=== PATIENT | female | born 1960 | race African-American/Black ===

== ENCOUNTER 2016-02-11 16:05 | Inpatient (IN) | payer OTHER ==
[~2016-02-11] VITALS: Ht 172.7 cm; Wt 95.0 kg
[~2016-02-11 16:05] MED LIST: ACID CONTROL150 MG PO; ALKA-SELTZER H1 EACH PO; AMLODIPINE BESYL5 MG PO; ATARAX,VISTARIL25 MG PO; BENADRYL25 MG PO; CARAFATE1 GM PO; Cleocin PO; DICYCLOMINE HCL20 MG PO; EFFEXOR XR150 MG PO; EFFEXOR XR75 MG PO; ESKALITH300 M1 PO; Effexor XR PO; FENTANYL1 EAC5; FLEXERIL5 MG PO; Flexeril PO; INVanz IV; KENALOG,ARISTOC80 GM TP; LIPITOR20 MG PO; LIPITOR80 MG PO; LITHIUM CARBON150 MG PO; LITHIUM CARBON300 MG PO; NEXIUM40 MG PO; NexIUM PO; Norvasc PO; ONE DAILY MUL400 MCG PO; OXAYDO5 MG PO; PANTOPRAZOLE SO40 MG PO; PEPCID20 MG PO; PERCOCET 5/31 TABLET PO; PREDNISONE10 M1 PO; PREDNISONE20 MG PO; PROTONIX40 MG PO; TRAMADOL HCL50 MG PO; ZANTAC75 M1 PO; ZESTRIL,PRINIVI10 M1 PO; Zantac PO; oxyCODONE PO
[2016-02-11 17:39] LABS: MCH 30.3 PG (29.0-34.0); MCHC 34.7 G/DL (30.0-36.0); MCV 87.4 FL (83-99); MEAN PLAT.VOLUME 10.9 uM^3 (9.5-12.4); PLATELET COUNT 243 K/uL (156-360); RBC DIS.WIDTH-CV 16.4 % (11.8-14.6); RBC DIS.WIDTH-SD 51.4 % (39-53); RED BLOOD COUNT 4.12 M/uL (3.80-5.20); WHITE BLOOD COUNT 6.3 K/uL (4.1-10.2)
[2016-02-11 17:59] LABS: CHLORIDE 109 mEq/L (99-109); POTASSIUM 3.5 mEq/L (3.7-5.4); SODIUM 142 mEq/L (136-147)
[2016-02-11 18:01] LABS: GLUCOSE 74 mg/dL (70-99)
[2016-02-11 18:03] LABS: ANION GAP 15 MEQ/L (2-14); TOTAL BILIRUBIN 0.8 mg/dL (0.0-1.0)
[2016-02-11 18:05] LABS: ALKALINE PHOSPHATASE 168 IU/L (3-129); GFR ESTIMATE (CALCULATED) > 59 mL/min/
[2016-02-11 18:06] LABS: UREA NITROGEN (BUN) 3 mg/dL (9-23)
[2016-02-11 18:08] LABS: LIPASE 53 U/L (1.0-51.0)
[2016-02-11 20:09] LABS: ADD MIUA? YES; BILIRUBIN NEGATIVE; BLOOD NEGATIVE; COLOR YELLOW ((YELLOW)); GLUCOSE (STRIP) NEGATIVE; KETONES NEGATIVE; LEUKOCYTES SMALL; NITRITE NEGATIVE; PH, URINE 6.5 (5-8); PROTEIN (STRIP) NEGATIVE; SPECIFIC GRAVITY 1.036 (1.000-1.030)
[2016-02-11 20:54] LABS: BACTERIA 1+; CASTS PRESENT /LPF; CRYSTALS PRESENT; EPITHELIAL CELLS 2+; MUCUS TRACE; RED BLOOD CELLS RARE /HPF (0-5); UCUL ADDED? NO; WHITE BLOOD CELLS 0-5 /HPF (0-5)
[2016-02-11 20:55] LABS: CALCIUM OXALATE CRYSTALS 1+
[2016-02-12 04:45] VITALS: BP 118/72
[2016-02-12 08:01] VITALS: BP 114/64
[2016-02-12 11:47] LABS: C DIFF TOXIN NEGATIVE (NEGATIVE)
[2016-02-12 11:51] VITALS: BP 99/67
[2016-02-12 12:02] LABS: PROBE CHECK PASS; SPECIMEN PROCESSING CONTROL PASS
[2016-02-12 16:05] VITALS: BP 103/58
[2016-02-12 20:07] VITALS: BP 110/76
[2016-02-13] VITALS (7 sets, daily range): BP systolic 101–123; BP diastolic 57–74
[2016-02-13 06:46] LABS: ANION GAP 6 MEQ/L (2-14); CHLORIDE 113 MEQ/L (99-109); GFR ESTIMATE (CALCULATED) > 59 mL/min/; GLUCOSE 64 mg/dL (70-99); POTASSIUM 3.3 MEQ/L (3.7-5.4); SAMPLE HEMOLYSIS CHECK 0; SAMPLE ICTERIC CHECK 0; SAMPLE LIPEMIA CHECK 0; SODIUM 143 MEQ/L (136-147); UREA NITROGEN (BUN) 2 mg/dL (9-23)
[2016-02-13 08:47] LABS: MAGNESIUM 1.5 mg/dl (1.3-2.7)
[2016-02-14 03:44] VITALS: BP 114/64
[2016-02-14 07:23] LABS: ANION GAP 7 MEQ/L (2-14); CHLORIDE 113 MEQ/L (99-109); GFR ESTIMATE (CALCULATED) > 59 mL/min/; GLUCOSE 72 mg/dL (70-99); POTASSIUM 3.4 MEQ/L (3.7-5.4); SAMPLE HEMOLYSIS CHECK 0; SAMPLE ICTERIC CHECK 0; SAMPLE LIPEMIA CHECK 0; SODIUM 143 MEQ/L (136-147); UREA NITROGEN (BUN) 2 mg/dL (9-23)
[2016-02-14 07:31] LABS: ALKALINE PHOSPHATASE 131 IU/L (3-129); DIRECT BILIRUBIN 0.2 mg/dL (0.0-0.3); TOTAL BILIRUBIN 0.7 MG/DL (0.0-1.0)
[2016-02-14 07:39] VITALS: BP 124/62
[2016-02-14 11:29] VITALS: BP 106/67
[2016-02-14 15:50] VITALS: BP 108/73
[2016-02-15 00:20] VITALS: BP 122/76
[2016-02-15 08:00] LABS: EOSINOPHIL (%) 1.6 % (0-5); EOSINOPHIL COUNT 0.1 K/uL (0-0.3); HEMATOCRIT 27.2 % (36.0-46.0); IMMATURE GRANULOCYTE (%) 0.2 % (0.0-0.7); LYMPHOCYTE COUNT 2.1 K/uL (1.0-2.8); MCH 29.8 PG (29.0-34.0); MCHC 34.6 G/DL (30.0-36.0); MCV 86.3 FL (83-99); MONOCYTE (%) 6.3 % (3-12); MONOCYTE COUNT 0.4 K/uL (0-0.8); NEUTROPHIL (%) 54.8 % (45-76); NEUTROPHIL COUNT 3.1 K/uL (1.8-6.4); RBC DIS.WIDTH-CV 16.4 % (11.8-14.6); RBC DIS.WIDTH-SD 51.6 % (39-53); WHITE BLOOD COUNT 5.7 K/uL (4.1-10.2)
[2016-02-15 08:01] LABS: RED BLOOD COUNT 3.15 M/uL (3.80-5.20)
[2016-02-15 08:03] VITALS: BP 112/64
[2016-02-15 08:07] LABS: ALKALINE PHOSPHATASE 114 IU/L (3-129); ANION GAP 6 MEQ/L (2-14); CHLORIDE 113 MEQ/L (99-109); GFR ESTIMATE (CALCULATED) > 59 mL/min/; GLUCOSE 84 mg/dL (70-99); POTASSIUM 3.4 MEQ/L (3.7-5.4); SAMPLE HEMOLYSIS CHECK 0; SAMPLE ICTERIC CHECK 0; SAMPLE LIPEMIA CHECK 0; SODIUM 144 MEQ/L (136-147); TOTAL BILIRUBIN 0.7 MG/DL (0.0-1.0); UREA NITROGEN (BUN) 2 mg/dL (9-23)
[2016-02-15 08:08] LABS: MAGNESIUM 1.8 mg/dl (1.3-2.7)
[2016-02-15 08:30] LABS: HEMATOLOGY COMMENT 1 REV; USER ID NJR
[2016-02-15 08:33] LABS: MEAN PLAT.VOLUME 10.7 uM^3 (9.5-12.4); PLATELET COUNT 147 K/uL (156-360)
[2016-02-15 10:08] LABS: HBSG INDEX 0.17
[2016-02-15 10:14] LABS: ANTI-HEPATITIS A VIRUS (IGM) Nonreactive; HAV INDEX 0.14
[2016-02-15 10:15] LABS: ANTI-HEPATITIS B CORE (IGM) Nonreactive; HBC IgM INDEX 0.06
[2016-02-15 11:25] LABS: HPCA INDEX 3.32
[2016-02-15 16:19] VITALS: BP 116/81
[2016-02-15 23:28] VITALS: BP 115/70
[2016-02-16 07:24] LABS: HEMATOCRIT 29.8 % (36.0-46.0); MCH 30.1 PG (29.0-34.0); MCHC 34.6 G/DL (30.0-36.0); MCV 87.1 FL (83-99); MEAN PLAT.VOLUME 11.1 uM^3 (9.5-12.4); PLATELET COUNT 146 K/uL (156-360); RBC DIS.WIDTH-CV 16.3 % (11.8-14.6); RBC DIS.WIDTH-SD 52.2 % (39-53); RED BLOOD COUNT 3.42 M/uL (3.80-5.20); WHITE BLOOD COUNT 6.4 K/uL (4.1-10.2)
[2016-02-16 07:49] LABS: EOSINOPHIL (%) 0.8 % (0-5); EOSINOPHIL COUNT 0.1 K/uL (0-0.3); IMMATURE GRANULOCYTE (%) 0.2 % (0.0-0.7); LYMPHOCYTE COUNT 2.3 K/uL (1.0-2.8); MONOCYTE (%) 3.9 % (3-12); MONOCYTE COUNT 0.3 K/uL (0-0.8); NEUTROPHIL (%) 58.2 % (45-76); NEUTROPHIL COUNT 3.7 K/uL (1.8-6.4)
[2016-02-16 07:50] LABS: ALKALINE PHOSPHATASE 117 IU/L (3-129); ANION GAP 8 MEQ/L (2-14); CHLORIDE 113 MEQ/L (99-109); GFR ESTIMATE (CALCULATED) > 59 mL/min/; GLUCOSE 88 mg/dL (70-99); POTASSIUM 3.7 MEQ/L (3.7-5.4); SAMPLE HEMOLYSIS CHECK 0; SAMPLE ICTERIC CHECK 0; SAMPLE LIPEMIA CHECK 0; SODIUM 145 MEQ/L (136-147); UREA NITROGEN (BUN) 2 mg/dL (9-23)
[2016-02-16 08:12] VITALS: BP 118/81
[2016-02-16 08:53] LABS: HEMATOLOGY COMMENT 1 SMEAR COMPATIBLE; PLAT.SUFFICIENCY DECREASED; USER ID TLW
[2016-02-16 16:33] VITALS: BP 113/81
[2016-02-16 17:24] LABS: BASE EXCESS -1.6 mEq/L (-3 to +3); BICARBONATE 22.9 mEq/L (22-26); CARBOXY HGB 1.9 % (0-5); METHEMOGLOBIN 1.5 % (0-1.5); PCO2 37 mm Hg (35-45); PO2 64 mm Hg (80-100); SITE RR
[2016-02-16 17:25] LABS: COMMENTS - BLOOD GASES A+C+; FI02 50 %; O2 FLOW 12 L/MIN
[2016-02-16 19:23] VITALS: BP 120/79
[2016-02-16 23:14] VITALS: BP 126/72
[2016-02-17 03:32] VITALS: BP 129/70
[2016-02-17 06:25] LABS: HEMATOCRIT 27.4 % (36.0-46.0); MCH 30.4 PG (29.0-34.0); MCHC 34.7 G/DL (30.0-36.0); MCV 87.5 FL (83-99); MEAN PLAT.VOLUME 11.4 uM^3 (9.5-12.4); PLATELET COUNT 144 K/uL (156-360); RBC DIS.WIDTH-CV 16.6 % (11.8-14.6); RBC DIS.WIDTH-SD 53.1 % (39-53); RED BLOOD COUNT 3.13 M/uL (3.80-5.20); WHITE BLOOD COUNT 6.9 K/uL (4.1-10.2)
[2016-02-17 06:51] LABS: ANION GAP 10 MEQ/L (2-14); CHLORIDE 114 MEQ/L (99-109); GFR ESTIMATE (CALCULATED) > 59 mL/min/; POTASSIUM 3.7 MEQ/L (3.7-5.4); SAMPLE HEMOLYSIS CHECK 0; SAMPLE ICTERIC CHECK 0; SAMPLE LIPEMIA CHECK 0; SODIUM 146 MEQ/L (136-147); UREA NITROGEN (BUN) 4 mg/dL (9-23)
[2016-02-17 06:55] LABS: GLUCOSE 177 mg/dL (70-99)
[2016-02-17 07:49] VITALS: BP 120/85
[2016-02-17 16:13] VITALS: BP 100/52
[2016-02-17 19:13] VITALS: BP 103/68
[2016-02-17 23:37] VITALS: BP 111/63
[2016-02-18 03:34] VITALS: BP 115/68
[2016-02-18 07:21] LABS: INTERNAL CONTROL VALID? YES
[2016-02-18 07:58] VITALS: BP 123/86
[2016-02-18 10:03] LABS: ANION GAP 17 MEQ/L (2-14); CHLORIDE 111 MEQ/L (99-109); POTASSIUM 4.4 MEQ/L (3.7-5.4); SAMPLE HEMOLYSIS CHECK 1; SAMPLE ICTERIC CHECK 0; SAMPLE LIPEMIA CHECK 0; SODIUM 148 MEQ/L (136-147)
[2016-02-18 10:10] LABS: GFR ESTIMATE (CALCULATED) > 59 mL/min/; UREA NITROGEN (BUN) 8 mg/dL (9-23)
[2016-02-18 10:18] LABS: GLUCOSE 114 mg/dL (70-99)
[2016-02-18 14:31] LABS: HEMATOCRIT 30.6 % (36.0-46.0); MCH 30.4 PG (29.0-34.0); MCHC 33.3 G/DL (30.0-36.0); MCV 91.1 FL (83-99); MEAN PLAT.VOLUME 12.2 uM^3 (9.5-12.4); PLATELET COUNT 182 K/uL (156-360); RBC DIS.WIDTH-CV 16.9 % (11.8-14.6); RBC DIS.WIDTH-SD 55.7 % (39-53); RED BLOOD COUNT 3.36 M/uL (3.80-5.20); WHITE BLOOD COUNT 12.1 K/uL (4.1-10.2)
[2016-02-18 15:32] VITALS: BP 95/63
[2016-02-18 23:34] VITALS: BP 113/79
[2016-02-19 07:37] VITALS: BP 104/67
[2016-02-19 07:43] LABS: HEMATOCRIT 27.6 % (36.0-46.0); MCH 30.2 PG (29.0-34.0); MCHC 34.1 G/DL (30.0-36.0); MCV 88.7 FL (83-99); MEAN PLAT.VOLUME 12.3 uM^3 (9.5-12.4); PLATELET COUNT 152 K/uL (156-360); RBC DIS.WIDTH-CV 16.7 % (11.8-14.6); RED BLOOD COUNT 3.11 M/uL (3.80-5.20); WHITE BLOOD COUNT 10.2 K/uL (4.1-10.2)
[2016-02-19 08:09] LABS: ANION GAP 10 MEQ/L (2-14); CHLORIDE 113 MEQ/L (99-109); GFR ESTIMATE (CALCULATED) > 59 mL/min/; GLUCOSE 87 mg/dL (70-99); POTASSIUM 3.6 MEQ/L (3.7-5.4); SAMPLE HEMOLYSIS CHECK 0; SAMPLE ICTERIC CHECK 0; SAMPLE LIPEMIA CHECK 0; SODIUM 146 MEQ/L (136-147); UREA NITROGEN (BUN) 9 mg/dL (9-23)
[2016-02-19 11:47] VITALS: BP 118/83
[2016-02-19 16:07] VITALS: BP 118/77
[2016-02-20] VITALS: BP 118/84
[2016-02-20 08:15] VITALS: BP 114/80
[2016-02-20 15:58] VITALS: BP 105/70
[2016-02-20 23:42] VITALS: BP 110/76
[2016-02-21 07:15] LABS: ANION GAP 7 MEQ/L (2-14); CHLORIDE 110 MEQ/L (99-109); GFR ESTIMATE (CALCULATED) > 59 mL/min/; GLUCOSE 82 mg/dL (70-99); POTASSIUM 3.4 MEQ/L (3.7-5.4); SAMPLE HEMOLYSIS CHECK 0; SAMPLE ICTERIC CHECK 0; SAMPLE LIPEMIA CHECK 0; SODIUM 143 MEQ/L (136-147); UREA NITROGEN (BUN) 7 mg/dL (9-23)
[2016-02-21 07:59] VITALS: BP 118/81
[2016-02-21] MEDS ORDERED: SPIRIVA RESPIMAT4 GM IH (10:20)
[2016-02-21] MEDS ORDERED: PREDNISONE10 MG PO (10:20)
[2016-02-21] MEDS ORDERED: ADVAIR HFA120 INHALA IH (10:20)
[2016-02-21] MEDS ORDERED: LEVAQUIN500 MG PO (10:20)
[2016-02-21] MEDS ORDERED: K-DUR20 MEQ PO (10:20)
== END 2016-02-21 13:33 | disposition home or self-care (01) | DRG 640 ==
LOC: EME 16:05 → EDOF 02-12 03:09 → 5WEST 02-12 04:29 → 2EAST 02-13 10:14 → 5WEST 02-13 10:14 → 2EAST 02-13 22:05
PROVIDERS: Hospitalist; Nurse Practitioner Adult Health; Physician Assistant Medical
DX: E86.0 Dehydration (principal); J69.0 Pneumonitis due to inhalation of food and vomit; N20.0 Calculus of kidney; K57.30 Diverticulosis of large intestine without perforation or abscess without bleeding; J96.01 Acute respiratory failure with hypoxia; R19.7 Diarrhea, unspecified; R11.2 Nausea with vomiting, unspecified; E87.6 Hypokalemia; E88.09 Other disorders of plasma-protein metabolism, not elsewhere classified; I10 Essential (primary) hypertension; L43.9 Lichen planus, unspecified; K21.9 Gastro-esophageal reflux disease without esophagitis; E78.5 Hyperlipidemia, unspecified; F31.9 Bipolar disorder, unspecified; B19.20 Unspecified viral hepatitis C without hepatic coma; D52.0 Dietary folate deficiency anemia; E83.51 Hypocalcemia
CPT/HCPCS: 36600; 70486; 71010; 71020; 71250; 74177; 80048; 80053; 80074; 80076; 80178; 81003; 82607; 82746; 82803; 83690; 83735; 84100; 84702; 85025; 85027; 86256 90; 86609 90; 87040; 87070; 87177; 87205; 87329; 87449; 87493; 87506; 87522 90; 93970; 94640; 94640 76; 94799; 99202; 99281; 99285; G0378; J0456; J0696; J1650; J1940; J2405; J2543; J2920; J2930; J3475; J3480; J7030; J7050; J7070; J7512; P9047; Q0177; S0028

== ENCOUNTER 2016-02-23 02:50 | Inpatient (IN) | payer OTHER ==
[~2016-02-23] VITALS: Ht 172.7 cm; Wt 95.0 kg
[~2016-02-23 02:50] MED LIST changes: +ADVAIR HFA120 INHALA IH; +K-DUR20 MEQ PO; +LEVAQUIN500 MG PO; +PREDNISONE10 MG PO; +SPIRIVA RESPIMAT4 GM IH
[2016-02-23 03:22] LABS: HEMATOCRIT 32.5 % (36.0-46.0); MCH 30.6 PG (29.0-34.0); MCHC 34.2 G/DL (30.0-36.0); MCV 89.5 FL (83-99); MEAN PLAT.VOLUME 11.7 uM^3 (9.5-12.4); PLATELET COUNT 126 K/uL (156-360); RBC DIS.WIDTH-CV 16.1 % (11.8-14.6); RBC DIS.WIDTH-SD 49.8 % (39-53); RED BLOOD COUNT 3.63 M/uL (3.80-5.20)
[2016-02-23 03:33] LABS: CHLORIDE 113 mEq/L (99-109); POTASSIUM 3.1 mEq/L (3.7-5.4); SODIUM 149 mEq/L (136-147)
[2016-02-23 03:36] LABS: ANION GAP 12 MEQ/L (2-14)
[2016-02-23 03:37] LABS: TOTAL BILIRUBIN 0.8 mg/dL (0.0-1.0)
[2016-02-23 03:38] LABS: ALKALINE PHOSPHATASE 135 IU/L (3-129); GLUCOSE 103 mg/dL (70-99)
[2016-02-23 03:39] LABS: GFR ESTIMATE (CALCULATED) > 59 mL/min/
[2016-02-23 03:40] LABS: UREA NITROGEN (BUN) 4 mg/dL (9-23)
[2016-02-23 03:42] LABS: LIPASE 16 U/L (1.0-51.0)
[2016-02-23 06:56] LABS: INTERNAL CONTROL VALID? YES
[2016-02-23] MEDS ORDERED: KLOR-CON20 MEQ PO (07:54)
[2016-02-23] MEDS ORDERED: KLOR-CON M2020 MEQ PO (07:55)
[2016-02-23] MEDS ORDERED: LEVAQUIN500 MG PO (07:56)
[2016-02-23] MEDS ORDERED: IMODIUM A-D2 M2 PO (07:57)
[2016-02-23 08:08] LABS: MAGNESIUM 1.8 mg/dL (1.3-2.7)
[2016-02-23 10:14] LABS: EOSINOPHIL (%) 1.5 % (0-5); EOSINOPHIL COUNT 0.1 K/uL (0-0.3); HEMATOCRIT 27.2 % (36.0-46.0); IMMATURE GRANULOCYTE (%) 0.2 % (0.0-0.7); IMMATURE GRANULOCYTE COUNT 0.2 K/uL; LYMPHOCYTE COUNT 3.4 K/uL (1.0-2.8); MCH 29.8 PG (29.0-34.0); MCHC 33.8 G/DL (30.0-36.0); MONOCYTE (%) 5.7 % (3-12); MONOCYTE COUNT 0.5 K/uL (0-0.8); NEUTROPHIL (%) 57.1 % (45-76); NEUTROPHIL COUNT 5.5 K/uL (1.8-6.4); RBC DIS.WIDTH-CV 15.4 % (11.8-14.6); RBC DIS.WIDTH-SD 46.1 % (39-53); RED BLOOD COUNT 3.09 M/uL (3.80-5.20); WHITE BLOOD COUNT 9.5 K/uL (4.1-10.2)
[2016-02-23 10:16] LABS: MEAN PLAT.VOLUME 10.7 uM^3 (9.5-12.4)
[2016-02-23 10:17] LABS: PLATELET COUNT 214 K/uL (156-360)
[2016-02-23 10:33] LABS: CHLORIDE 116 mEq/L (99-109); POTASSIUM 2.5 mEq/L (3.7-5.4); SODIUM 150 mEq/L (136-147)
[2016-02-23 10:36] LABS: GLUCOSE 68 mg/dL (70-99)
[2016-02-23 10:37] LABS: ANION GAP 9 MEQ/L (2-14); TOTAL BILIRUBIN 0.9 mg/dL (0.0-1.0)
[2016-02-23 10:39] LABS: ALKALINE PHOSPHATASE 115 IU/L (3-129); GFR ESTIMATE (CALCULATED) > 59 mL/min/
[2016-02-23 10:40] LABS: UREA NITROGEN (BUN) 3 mg/dL (9-23)
[2016-02-23 15:39] VITALS: BP 123/68
[2016-02-23 15:46] VITALS: BP 123/68
[2016-02-23 18:17] LABS: ANION GAP 12 MEQ/L (2-14); CHLORIDE 111 MEQ/L (99-109); GFR ESTIMATE (CALCULATED) > 59 mL/min/; SAMPLE HEMOLYSIS CHECK 0; SAMPLE ICTERIC CHECK 0; SAMPLE LIPEMIA CHECK 0; SODIUM 148 MEQ/L (136-147); UREA NITROGEN (BUN) 3 mg/dL (9-23)
[2016-02-23 18:20] LABS: GLUCOSE 93 mg/dL (70-99)
[2016-02-24 00:36] VITALS: BP 125/68
[2016-02-24 00:56] LABS: CHLORIDE 113 mEq/L (99-109); POTASSIUM 2.7 mEq/L (3.7-5.4); SODIUM 146 mEq/L (136-147)
[2016-02-24 00:57] LABS: GLUCOSE 84 mg/dL (70-99)
[2016-02-24 00:59] LABS: ANION GAP 10 MEQ/L (2-14)
[2016-02-24 01:01] LABS: GFR ESTIMATE (CALCULATED) > 59 mL/min/
[2016-02-24 01:02] LABS: UREA NITROGEN (BUN) 3 mg/dL (9-23)
[2016-02-24 01:33] LABS: MAGNESIUM 1.3 mg/dL (1.3-2.7)
[2016-02-24 04:15] VITALS: BP 120/72
[2016-02-24 07:30] VITALS: BP 118/78
[2016-02-24 07:50] LABS: ANION GAP 9 MEQ/L (2-14); CHLORIDE 109 MEQ/L (99-109); GFR ESTIMATE (CALCULATED) > 59 mL/min/; GLUCOSE 84 mg/dL (70-99); POTASSIUM 3.4 MEQ/L (3.7-5.4); SAMPLE HEMOLYSIS CHECK 0; SAMPLE ICTERIC CHECK 0; SAMPLE LIPEMIA CHECK 0; SODIUM 143 MEQ/L (136-147); UREA NITROGEN (BUN) 2 mg/dL (9-23)
[2016-02-24 11:41] VITALS: BP 90/56
[2016-02-24 13:30] LABS: C DIFF TOXIN ND (NEGATIVE)
[2016-02-24 15:43] VITALS: BP 107/65
[2016-02-24 19:58] VITALS: BP 103/59
[2016-02-25] VITALS: BP 110/63
[2016-02-25 05:11] VITALS: BP 117/65
[2016-02-25 06:23] LABS: EOSINOPHIL (%) 2.7 % (0-5); EOSINOPHIL COUNT 0.3 K/uL (0-0.3); HEMATOCRIT 26.5 % (36.0-46.0); IMMATURE GRANULOCYTE (%) 0.1 % (0.0-0.7); LYMPHOCYTE COUNT 3.3 K/uL (1.0-2.8); MCH 30.5 PG (29.0-34.0); MCHC 33.6 G/DL (30.0-36.0); MCV 90.8 FL (83-99); MONOCYTE COUNT 0.5 K/uL (0-0.8); NEUTROPHIL (%) 58.9 % (45-76); NEUTROPHIL COUNT 5.9 K/uL (1.8-6.4); PLATELET COUNT 217 K/uL (156-360); RBC DIS.WIDTH-CV 15.8 % (11.8-14.6); RBC DIS.WIDTH-SD 50.9 % (39-53); RED BLOOD COUNT 2.92 M/uL (3.80-5.20)
[2016-02-25 06:53] LABS: IMMUNOGLOBULIN A 602 MG/DL (40-350); IMMUNOGLOBULIN G 1192 MG/DL (650-1600); IMMUNOGLOBULIN M 34 MG/DL (50-300)
[2016-02-25 07:09] LABS: ALKALINE PHOSPHATASE 92 IU/L (3-129); ANION GAP 9 MEQ/L (2-14); CHLORIDE 110 MEQ/L (99-109); GFR ESTIMATE (CALCULATED) > 59 mL/min/; GLUCOSE 80 mg/dL (70-99); MAGNESIUM 1.4 mg/dl (1.3-2.7); POTASSIUM 3.3 MEQ/L (3.7-5.4); SAMPLE HEMOLYSIS CHECK 0; SAMPLE ICTERIC CHECK 0; SAMPLE LIPEMIA CHECK 0; SODIUM 144 MEQ/L (136-147); TOTAL BILIRUBIN 0.9 MG/DL (0.0-1.0); UREA NITROGEN (BUN) 2 mg/dL (9-23)
[2016-02-25 08:19] VITALS: BP 112/78
[2016-02-25 11:30] VITALS: BP 102/52
[2016-02-25 15:22] VITALS: BP 118/74
[2016-02-25 20:16] VITALS: BP 106/66
[2016-02-26 00:23] VITALS: BP 110/62
[2016-02-26 07:49] VITALS: BP 96/66
[2016-02-26 09:40] LABS: EOSINOPHIL (%) 1.6 % (0-5); EOSINOPHIL COUNT 0.2 K/uL (0-0.3); HEMATOCRIT 29.2 % (36.0-46.0); IMMATURE GRANULOCYTE (%) 0.3 % (0.0-0.7); LYMPHOCYTE COUNT 3.6 K/uL (1.0-2.8); MCH 30.7 PG (29.0-34.0); MCHC 33.9 G/DL (30.0-36.0); MCV 90.7 FL (83-99); MEAN PLAT.VOLUME 11.4 uM^3 (9.5-12.4); MONOCYTE (%) 4.5 % (3-12); MONOCYTE COUNT 0.5 K/uL (0-0.8); NEUTROPHIL (%) 61.8 % (45-76); NEUTROPHIL COUNT 7.1 K/uL (1.8-6.4); PLATELET COUNT 232 K/uL (156-360); RBC DIS.WIDTH-CV 15.8 % (11.8-14.6); RBC DIS.WIDTH-SD 50.4 % (39-53); RED BLOOD COUNT 3.22 M/uL (3.80-5.20); WHITE BLOOD COUNT 11.5 K/uL (4.1-10.2)
[2016-02-26 10:55] LABS: ALKALINE PHOSPHATASE 105 IU/L (3-129); ANION GAP 11 MEQ/L (2-14); CHLORIDE 109 MEQ/L (99-109); GFR ESTIMATE (CALCULATED) > 59 mL/min/; GLUCOSE 71 mg/dL (70-99); POTASSIUM 3.6 MEQ/L (3.7-5.4); SAMPLE HEMOLYSIS CHECK 0; SAMPLE ICTERIC CHECK 0; SAMPLE LIPEMIA CHECK 0; SODIUM 147 MEQ/L (136-147)
[2016-02-26 10:57] LABS: TOTAL BILIRUBIN 1.3 MG/DL (0.0-1.0); UREA NITROGEN (BUN) < 2 mg/dL (9-23)
[2016-02-26 15:32] VITALS: BP 97/58
[2016-02-27 00:29] VITALS: BP 108/56
[2016-02-27 07:04] LABS: EOSINOPHIL (%) 1.1 % (0-5); EOSINOPHIL COUNT 0.1 K/uL (0-0.3); HEMATOCRIT 26.9 % (36.0-46.0); IMMATURE GRANULOCYTE (%) 0.2 % (0.0-0.7); LYMPHOCYTE COUNT 3.3 K/uL (1.0-2.8); MCH 30.6 PG (29.0-34.0); MCHC 33.8 G/DL (30.0-36.0); MCV 90.6 FL (83-99); MEAN PLAT.VOLUME 10.9 uM^3 (9.5-12.4); MONOCYTE (%) 5.1 % (3-12); MONOCYTE COUNT 0.6 K/uL (0-0.8); NEUTROPHIL (%) 66.3 % (45-76); NEUTROPHIL COUNT 8.2 K/uL (1.8-6.4); PLATELET COUNT 227 K/uL (156-360); RBC DIS.WIDTH-CV 15.8 % (11.8-14.6); RED BLOOD COUNT 2.97 M/uL (3.80-5.20); WHITE BLOOD COUNT 12.3 K/uL (4.1-10.2)
[2016-02-27 07:39] LABS: ALKALINE PHOSPHATASE 106 IU/L (3-129); ANION GAP 9 MEQ/L (2-14); CHLORIDE 112 MEQ/L (99-109); GFR ESTIMATE (CALCULATED) > 59 mL/min/; GLUCOSE 82 mg/dL (70-99); MAGNESIUM 1.4 mg/dl (1.3-2.7); POTASSIUM 3.1 MEQ/L (3.7-5.4); SAMPLE HEMOLYSIS CHECK 0; SAMPLE ICTERIC CHECK 0; SAMPLE LIPEMIA CHECK 0; SODIUM 148 MEQ/L (136-147); TOTAL BILIRUBIN 1.2 MG/DL (0.0-1.0); UREA NITROGEN (BUN) 2 mg/dL (9-23)
[2016-02-27 08:47] VITALS: BP 107/68
[2016-02-27 16:56] VITALS: BP 100/66
[2016-02-28 00:38] VITALS: BP 97/60
[2016-02-28 07:01] LABS: EOSINOPHIL (%) 1.3 % (0-5); EOSINOPHIL COUNT 0.1 K/uL (0-0.3); IMMATURE GRANULOCYTE (%) 0.2 % (0.0-0.7); LYMPHOCYTE COUNT 2.4 K/uL (1.0-2.8); MCH 31.1 PG (29.0-34.0); MCV 88.7 FL (83-99); MEAN PLAT.VOLUME 11.4 uM^3 (9.5-12.4); MONOCYTE (%) 6.5 % (3-12); MONOCYTE COUNT 0.6 K/uL (0-0.8); NEUTROPHIL (%) 66.4 % (45-76); NEUTROPHIL COUNT 6.3 K/uL (1.8-6.4); PLATELET COUNT 212 K/uL (156-360); RBC DIS.WIDTH-SD 49.3 % (39-53); RED BLOOD COUNT 2.93 M/uL (3.80-5.20); WHITE BLOOD COUNT 9.5 K/uL (4.1-10.2)
[2016-02-28 07:31] LABS: ANION GAP 11 MEQ/L (2-14); CHLORIDE 112 MEQ/L (99-109); GFR ESTIMATE (CALCULATED) > 59 mL/min/; GLUCOSE 67 mg/dL (70-99); MAGNESIUM 1.6 mg/dl (1.3-2.7); POTASSIUM 3.2 MEQ/L (3.7-5.4); SAMPLE HEMOLYSIS CHECK 0; SAMPLE ICTERIC CHECK 0; SAMPLE LIPEMIA CHECK 0; SODIUM 148 MEQ/L (136-147); TOTAL BILIRUBIN 1.3 MG/DL (0.0-1.0); UREA NITROGEN (BUN) 2 mg/dL (9-23)
[2016-02-28 07:33] LABS: ALKALINE PHOSPHATASE 138 IU/L (3-129)
[2016-02-28 07:41] VITALS: BP 114/64
[2016-02-29 00:17] VITALS: BP 120/65
[2016-02-29 06:59] LABS: EOSINOPHIL (%) 1.6 % (0-5); EOSINOPHIL COUNT 0.2 K/uL (0-0.3); IMMATURE GRANULOCYTE (%) 0.3 % (0.0-0.7); LYMPHOCYTE COUNT 2.8 K/uL (1.0-2.8); MCH 31.2 PG (29.0-34.0); MCV 89.1 FL (83-99); MEAN PLAT.VOLUME 11.3 uM^3 (9.5-12.4); MONOCYTE (%) 6.7 % (3-12); MONOCYTE COUNT 0.7 K/uL (0-0.8); NEUTROPHIL (%) 63.5 % (45-76); NEUTROPHIL COUNT 6.4 K/uL (1.8-6.4); PLATELET COUNT 189 K/uL (156-360); RBC DIS.WIDTH-CV 15.9 % (11.8-14.6); RBC DIS.WIDTH-SD 49.3 % (39-53); RED BLOOD COUNT 2.47 M/uL (3.80-5.20)
[2016-02-29 07:36] LABS: ANION GAP 9 MEQ/L (2-14); CHLORIDE 111 MEQ/L (99-109); GFR ESTIMATE (CALCULATED) > 59 mL/min/; GLUCOSE 68 mg/dL (70-99); SAMPLE HEMOLYSIS CHECK 1; SAMPLE ICTERIC CHECK 0; SAMPLE LIPEMIA CHECK 0; SODIUM 144 MEQ/L (136-147); UREA NITROGEN (BUN) 2 mg/dL (9-23)
[2016-02-29 07:43] LABS: POTASSIUM 3.4 MEQ/L (3.7-5.4)
[2016-02-29 08:03] VITALS: BP 97/53
[2016-02-29 09:51] LABS: POTASSIUM 3.1 MEQ/L (3.7-5.4)
[2016-02-29 15:09] VITALS: BP 103/59
[2016-02-29 20:18] LABS: BASOPHIL COUNT 0.1 K/uL (0-0.1); EOSINOPHIL (%) 1.1 % (0-5); EOSINOPHIL COUNT 0.1 K/uL (0-0.3); HEMATOCRIT 24.4 % (36.0-46.0); IMMATURE GRANULOCYTE (%) 0.3 % (0.0-0.7); LYMPHOCYTE COUNT 2.8 K/uL (1.0-2.8); MCH 30.9 PG (29.0-34.0); MCHC 34.4 G/DL (30.0-36.0); MCV 89.7 FL (83-99); MEAN PLAT.VOLUME 11.2 uM^3 (9.5-12.4); MONOCYTE (%) 5.9 % (3-12); MONOCYTE COUNT 0.6 K/uL (0-0.8); NEUTROPHIL (%) 63.2 % (45-76); NEUTROPHIL COUNT 6.1 K/uL (1.8-6.4); PLATELET COUNT 193 K/uL (156-360); RBC DIS.WIDTH-CV 15.7 % (11.8-14.6); RBC DIS.WIDTH-SD 49.5 % (39-53); RED BLOOD COUNT 2.72 M/uL (3.80-5.20); WHITE BLOOD COUNT 9.7 K/uL (4.1-10.2)
[2016-03-01] VITALS: BP 92/58
[2016-03-01 04:00] VITALS: BP 138/73
[2016-03-01 07:23] VITALS: BP 104/63
[2016-03-01 08:49] LABS: MCH 30.7 PG (29.0-34.0); MCV 87.8 FL (83-99); MEAN PLAT.VOLUME 11.5 uM^3 (9.5-12.4); PLATELET COUNT 185 K/uL (156-360); RBC DIS.WIDTH-CV 16.1 % (11.8-14.6); RBC DIS.WIDTH-SD 48.4 % (39-53); RED BLOOD COUNT 2.96 M/uL (3.80-5.20); WHITE BLOOD COUNT 11.4 K/uL (4.1-10.2)
[2016-03-01 08:55] LABS: BASOPHIL COUNT 0.1 K/uL (0-0.1); EOSINOPHIL (%) 1.6 % (0-5); EOSINOPHIL COUNT 0.2 K/uL (0-0.3); IMMATURE GRANULOCYTE (%) 0.2 % (0.0-0.7); LYMPHOCYTE COUNT 3.3 K/uL (1.0-2.8); MONOCYTE COUNT 0.7 K/uL (0-0.8); NEUTROPHIL (%) 62.5 % (45-76); NEUTROPHIL COUNT 7.1 K/uL (1.8-6.4)
[2016-03-01 10:08] LABS: ANION GAP 10 MEQ/L (2-14); CHLORIDE 110 MEQ/L (99-109); POTASSIUM 3.3 MEQ/L (3.7-5.4); SAMPLE HEMOLYSIS CHECK 0; SAMPLE ICTERIC CHECK 0; SAMPLE LIPEMIA CHECK 0; SODIUM 144 MEQ/L (136-147)
[2016-03-01 10:13] LABS: GFR ESTIMATE (CALCULATED) > 59 mL/min/; GLUCOSE 68 mg/dL (70-99); UREA NITROGEN (BUN) 2 mg/dL (9-23)
[2016-03-01 15:00] VITALS: BP 108/66
[2016-03-01 23:13] VITALS: BP 108/69
[2016-03-02 07:03] LABS: MCH 31.1 PG (29.0-34.0); MCHC 35.2 G/DL (30.0-36.0); MCV 88.3 FL (83-99); MEAN PLAT.VOLUME 11.8 uM^3 (9.5-12.4); PLATELET COUNT 186 K/uL (156-360); RBC DIS.WIDTH-CV 15.6 % (11.8-14.6); RBC DIS.WIDTH-SD 48.5 % (39-53); RED BLOOD COUNT 2.83 M/uL (3.80-5.20); WHITE BLOOD COUNT 10.4 K/uL (4.1-10.2)
[2016-03-02 07:37] LABS: ANION GAP 10 MEQ/L (2-14); CHLORIDE 109 MEQ/L (99-109); GFR ESTIMATE (CALCULATED) > 59 mL/min/; GLUCOSE 76 mg/dL (70-99); POTASSIUM 3.4 MEQ/L (3.7-5.4); SAMPLE HEMOLYSIS CHECK 0; SAMPLE ICTERIC CHECK 0; SAMPLE LIPEMIA CHECK 0; SODIUM 144 MEQ/L (136-147); UREA NITROGEN (BUN) 2 mg/dL (9-23)
[2016-03-02 08:09] VITALS: BP 121/75
[2016-03-02 23:33] VITALS: BP 105/72
[2016-03-03 07:15] LABS: HEMATOCRIT 22.6 % (36.0-46.0); MCH 30.7 PG (29.0-34.0); MCHC 34.5 G/DL (30.0-36.0); MEAN PLAT.VOLUME 11.2 uM^3 (9.5-12.4); PLATELET COUNT 174 K/uL (156-360); RBC DIS.WIDTH-CV 15.4 % (11.8-14.6); RBC DIS.WIDTH-SD 48.1 % (39-53); RED BLOOD COUNT 2.54 M/uL (3.80-5.20); WHITE BLOOD COUNT 9.3 K/uL (4.1-10.2)
[2016-03-03 07:54] LABS: ANION GAP 9 MEQ/L (2-14); CHLORIDE 110 MEQ/L (99-109); POTASSIUM 3.5 MEQ/L (3.7-5.4); SAMPLE HEMOLYSIS CHECK 0; SAMPLE ICTERIC CHECK 0; SAMPLE LIPEMIA CHECK 0; SODIUM 142 MEQ/L (136-147)
[2016-03-03 08:00] LABS: GFR ESTIMATE (CALCULATED) > 59 mL/min/; GLUCOSE 77 mg/dL (70-99); UREA NITROGEN (BUN) 4 mg/dL (9-23)
[2016-03-03 08:13] VITALS: BP 102/70
[2016-03-03 16:00] VITALS: BP 123/81; BP 132/66
[2016-03-04] VITALS (14 sets, daily range): BP systolic 97–121; BP diastolic 57–79
[2016-03-04 04:10] LABS: ADD MIUA? YES; BILIRUBIN NEGATIVE; BLOOD SMALL; COLOR DK YELLOW ((YELLOW)); GLUCOSE (STRIP) NEGATIVE; KETONES NEGATIVE; LEUKOCYTES LARGE; NITRITE NEGATIVE; PH, URINE 6.5 (5-8); PROTEIN (STRIP) TRACE; SPECIFIC GRAVITY 1.012 (1.000-1.030); UROBILINOGEN 0.2 MG/DL (0.2-1.0)
[2016-03-04 04:21] LABS: CASTS PRESENT /LPF; EPITHELIAL CELLS 2+; FINE GRANULAR CASTS 0-5 /LPF; MUCUS TRACE
[2016-03-04 04:22] LABS: BACTERIA 2+; CRYSTALS NONE SEEN; RED BLOOD CELLS RARE /HPF (0-5); UCUL ADDED? YES; WHITE BLOOD CELLS TNTC /HPF (0-5)
[2016-03-04 05:49] LABS: HEMATOCRIT 20.7 % (36.0-46.0); MCH 31.3 PG (29.0-34.0); MCHC 35.3 G/DL (30.0-36.0); MCV 88.8 FL (83-99); MEAN PLAT.VOLUME 11.6 uM^3 (9.5-12.4); PLATELET COUNT 178 K/uL (156-360); RBC DIS.WIDTH-CV 15.7 % (11.8-14.6); RBC DIS.WIDTH-SD 48.6 % (39-53); RED BLOOD COUNT 2.33 M/uL (3.80-5.20); WHITE BLOOD COUNT 7.8 K/uL (4.1-10.2)
[2016-03-04 06:14] LABS: ANION GAP 8 MEQ/L (2-14); CHLORIDE 111 MEQ/L (99-109); GFR ESTIMATE (CALCULATED) > 59 mL/min/; GLUCOSE 80 mg/dL (70-99); POTASSIUM 3.5 MEQ/L (3.7-5.4); SAMPLE HEMOLYSIS CHECK 0; SAMPLE ICTERIC CHECK 0; SAMPLE LIPEMIA CHECK 0; SODIUM 141 MEQ/L (136-147); UREA NITROGEN (BUN) 5 mg/dL (9-23)
[2016-03-04 21:05] LABS: HEMATOCRIT 29.5 % (36.0-46.0); MCH 30.4 PG (29.0-34.0); MCHC 34.9 G/DL (30.0-36.0); PLATELET COUNT 176 K/uL (156-360); RBC DIS.WIDTH-CV 15.4 % (11.8-14.6); RBC DIS.WIDTH-SD 45.2 % (39-53); RED BLOOD COUNT 3.39 M/uL (3.80-5.20); WHITE BLOOD COUNT 10.3 K/uL (4.1-10.2)
[2016-03-05 08:30] VITALS: BP 111/62
[2016-03-05 08:47] VITALS: BP 11/62; BP 111/62
[2016-03-05 08:49] LABS: MCH 30.4 PG (29.0-34.0); MEAN PLAT.VOLUME 11.5 uM^3 (9.5-12.4); PLATELET COUNT 194 K/uL (156-360); RBC DIS.WIDTH-CV 16.1 % (11.8-14.6); RBC DIS.WIDTH-SD 48.2 % (39-53); RED BLOOD COUNT 3.22 M/uL (3.80-5.20); WHITE BLOOD COUNT 9.7 K/uL (4.1-10.2)
[2016-03-05 09:20] LABS: ANION GAP 12 MEQ/L (2-14); CHLORIDE 112 MEQ/L (99-109); GFR ESTIMATE (CALCULATED) > 59 mL/min/; GLUCOSE 97 mg/dL (70-99); POTASSIUM 3.5 MEQ/L (3.7-5.4); SAMPLE HEMOLYSIS CHECK 0; SAMPLE ICTERIC CHECK 0; SAMPLE LIPEMIA CHECK 0; SODIUM 145 MEQ/L (136-147); UREA NITROGEN (BUN) 7 mg/dL (9-23)
[2016-03-05 16:35] VITALS: BP 106/69
[2016-03-06] VITALS: BP 116/67
[2016-03-06 08:05] VITALS: BP 114/61
[2016-03-06 08:27] LABS: HEMATOCRIT 30.2 % (36.0-46.0); MCH 30.4 PG (29.0-34.0); MCHC 34.8 G/DL (30.0-36.0); MCV 87.5 FL (83-99); MEAN PLAT.VOLUME 11.3 uM^3 (9.5-12.4); PLATELET COUNT 195 K/uL (156-360); RBC DIS.WIDTH-CV 16.5 % (11.8-14.6); RBC DIS.WIDTH-SD 49.3 % (39-53); RED BLOOD COUNT 3.45 M/uL (3.80-5.20); WHITE BLOOD COUNT 10.1 K/uL (4.1-10.2)
[2016-03-06 09:07] LABS: ANION GAP 12 MEQ/L (2-14); CHLORIDE 113 MEQ/L (99-109); GFR ESTIMATE (CALCULATED) > 59 mL/min/; POTASSIUM 3.9 MEQ/L (3.7-5.4); SAMPLE HEMOLYSIS CHECK 0; SAMPLE ICTERIC CHECK 0; SAMPLE LIPEMIA CHECK 0; SODIUM 146 MEQ/L (136-147); UREA NITROGEN (BUN) 7 mg/dL (9-23)
[2016-03-06 09:16] LABS: GLUCOSE 64 mg/dL (70-99)
[2016-03-06 16:00] VITALS: BP 136/78
[2016-03-07 01:56] VITALS: BP 131/65
[2016-03-07 07:18] LABS: MCH 30.8 PG (29.0-34.0); MCV 87.9 FL (83-99); MEAN PLAT.VOLUME 11.3 uM^3 (9.5-12.4); PLATELET COUNT 213 K/uL (156-360); RBC DIS.WIDTH-CV 16.8 % (11.8-14.6); RBC DIS.WIDTH-SD 50.8 % (39-53); RED BLOOD COUNT 3.64 M/uL (3.80-5.20); WHITE BLOOD COUNT 11.3 K/uL (4.1-10.2)
[2016-03-07 07:37] VITALS: BP 110/62
[2016-03-07 08:05] LABS: ANION GAP 10 MEQ/L (2-14); CHLORIDE 111 MEQ/L (99-109); GFR ESTIMATE (CALCULATED) > 59 mL/min/; GLUCOSE 76 mg/dL (70-99); POTASSIUM 4.2 MEQ/L (3.7-5.4); SAMPLE HEMOLYSIS CHECK 0; SAMPLE ICTERIC CHECK 0; SAMPLE LIPEMIA CHECK 0; SODIUM 143 MEQ/L (136-147); UREA NITROGEN (BUN) 8 mg/dL (9-23)
[2016-03-07 15:54] VITALS: BP 114/58
[2016-03-08] VITALS: BP 110/70
[2016-03-08 06:03] LABS: HEMATOCRIT 31.7 % (36.0-46.0); MCH 29.4 PG (29.0-34.0); MCHC 33.1 G/DL (30.0-36.0); MCV 88.8 FL (83-99); MEAN PLAT.VOLUME 11.4 uM^3 (9.5-12.4); PLATELET COUNT 218 K/uL (156-360); RBC DIS.WIDTH-CV 16.6 % (11.8-14.6); RBC DIS.WIDTH-SD 50.9 % (39-53); RED BLOOD COUNT 3.57 M/uL (3.80-5.20); WHITE BLOOD COUNT 9.7 K/uL (4.1-10.2)
[2016-03-08 06:22] LABS: ANION GAP 8 MEQ/L (2-14); CHLORIDE 112 MEQ/L (99-109); GFR ESTIMATE (CALCULATED) > 59 mL/min/; GLUCOSE 64 mg/dL (70-99); POTASSIUM 4.5 MEQ/L (3.7-5.4); SAMPLE HEMOLYSIS CHECK 0; SAMPLE ICTERIC CHECK 0; SAMPLE LIPEMIA CHECK 0; SODIUM 144 MEQ/L (136-147); UREA NITROGEN (BUN) 10 mg/dL (9-23)
[2016-03-08 07:50] VITALS: BP 98/65
[2016-03-08 13:00] VITALS: BP 98/67
[2016-03-08] MEDS ORDERED: LOPERAMIDE2 MG PO (13:07)
[2016-03-08] MEDS ORDERED: KENALOG,ARISTOC15 G3 TP (13:07)
[2016-03-08] MEDS ORDERED: CHOLESTYRAMINE P4 GM PO (13:07)
[2016-03-08 16:50] VITALS: BP 107/59
[2016-03-09] VITALS: BP 145/86
[2016-03-09 14:20] VITALS: BP 98/55
[2016-03-09] MEDS ORDERED: VITAMIN D-3 401 EACH PO (15:10)
[2016-03-09] MEDS ORDERED: FOLIC ACID1 MG PO (15:10)
[2016-03-10] VITALS: BP 106/54
[2016-03-10 07:45] VITALS: BP 106/51
== END 2016-03-10 16:03 | DRG 392 ==
LOC: EME 02:50 → EDOF 05:21 → 5SOUTH 05:21
PROVIDERS: Emergency Medicine; Hospitalist; Internal Medicine; Physician Assistant; Physician Assistant Medical
DX: R19.7 Diarrhea, unspecified (principal); R65.10 Systemic inflammatory response syndrome (SIRS) of non-infectious origin without acute organ dysfunction; K91.1 Postgastric surgery syndromes; F33.9 Major depressive disorder, recurrent, unspecified; E87.2 Acidosis; E87.0 Hyperosmolality and hypernatremia; E66.01 Morbid (severe) obesity due to excess calories; E86.0 Dehydration; J44.9 Chronic obstructive pulmonary disease, unspecified; F17.210 Nicotine dependence, cigarettes, uncomplicated; L43.9 Lichen planus, unspecified; Z98.84 Bariatric surgery status; B19.20 Unspecified viral hepatitis C without hepatic coma; Z99.81 Dependence on supplemental oxygen; E83.51 Hypocalcemia; D23.9 Other benign neoplasm of skin, unspecified; E78.5 Hyperlipidemia, unspecified; I10 Essential (primary) hypertension; K21.9 Gastro-esophageal reflux disease without esophagitis; K57.90 Diverticulosis of intestine, part unspecified, without perforation or abscess without bleeding; R00.0 Tachycardia, unspecified; L30.4 Erythema intertrigo; R09.02 Hypoxemia; Z68.31 Body mass index [BMI] 31.0-31.9, adult; Z90.49 Acquired absence of other specified parts of digestive tract
CPT/HCPCS: 71010; 74177; 80048; 80048 91; 80053; 80200; 81003; 82272; 82533 91; 82784 90; 82941 90; 83516 90; 83605; 83630; 83690; 83735; 84100; 84439; 84443; 84481; 84586 90; 84999; 85025; 85025 91; 85027; 86850; 86900; 86901; 86920; 87040; 87086; 87177; 87206; 87329; 87493; 88305; 88313; 93005; 94640; 94640 76; 94760; 94799; 97530 GO; 97530 GP; 99281; 99285; J0696; J1170; J1644; J2270; J2405; J2543; J3010; J3260; J3370; J3480; J7030; J7042; J7050; J7070; J7120; P9016; P9040; S0028; S0030

== ENCOUNTER 2016-03-31 14:30 | Inpatient (IN) | payer OTHER ==
[~2016-03-31] VITALS: Ht 172.7 cm; Wt 82.1 kg
[~2016-03-31 14:30] MED LIST changes: -ARTHRITIS PAIN650 M5 PO; -CEFEPIME HCL1 GM IM; -DULCOLAX10 MG PR; -FLEET ENEMA-AD118 ML PR; -MILK OF MAGN PO; -MINERIN CREME454 GM TP; -ONE DAILY TABL1 EAC1 PO; -PROBIOTIC1 EAC1 PO; -PROVENTIL,2.5 MG/3 M IH; -SALINE NASAL SP45 ML BOTH NARES; -SPIRIVA1 INHALATI IH; -TYLENOL ARTHRI650 MG PO; -VITAMIN D400 UNIT PO
[2016-03-31 15:16] LABS: HEMATOCRIT 28.8 % (36.0-46.0); MCH 31.6 PG (29.0-34.0); MCHC 31.9 G/DL (30.0-36.0); MEAN PLAT.VOLUME 10.6 uM^3 (9.5-12.4); PLATELET COUNT 311 K/uL (156-360); RED BLOOD COUNT 2.91 M/uL (3.80-5.20)
[2016-03-31 15:20] LABS: WHITE BLOOD COUNT 14.2 K/uL (4.1-10.2)
[2016-03-31 15:29] LABS: CHLORIDE 116 mEq/L (99-109); POTASSIUM 3.9 mEq/L (3.7-5.4); SODIUM 149 mEq/L (136-147)
[2016-03-31 15:31] LABS: GLUCOSE 99 mg/dL (70-99)
[2016-03-31 15:32] LABS: ANION GAP 10 MEQ/L (2-14)
[2016-03-31 15:33] LABS: TOTAL BILIRUBIN 1.6 mg/dL (0.0-1.0)
[2016-03-31 15:34] LABS: ALKALINE PHOSPHATASE 224 IU/L (3-129)
[2016-03-31 15:35] LABS: GFR ESTIMATE (CALCULATED) > 59 mL/min/
[2016-03-31 15:36] LABS: UREA NITROGEN (BUN) 10 mg/dL (9-23)
[2016-03-31 16:25] LABS: LIPASE 10 U/L (1.0-51.0)
[2016-03-31] MEDS ORDERED: SPIRIVA1 INHALATI IH (21:51)
[2016-03-31] MEDS ORDERED: VITAMIN D400 UNIT PO (21:52)
[2016-03-31] MEDS ORDERED: FOLIC ACID1 MG PO (21:52)
[2016-03-31] MEDS ORDERED: K-DUR20 MEQ PO (21:58)
[2016-03-31] MEDS ORDERED: ONE DAILY TABL1 EAC1 PO (21:58)
[2016-03-31] MEDS ORDERED: CEFEPIME HCL1 GM IM (22:00)
[2016-03-31] MEDS ORDERED: PROBIOTIC1 EAC1 PO (22:01)
[2016-03-31] MEDS ORDERED: SALINE NASAL SP45 ML BOTH NARES (22:03)
[2016-03-31] MEDS ORDERED: PROVENTIL,2.5 MG/3 M IH (22:04)
[2016-03-31] MEDS ORDERED: MINERIN CREME454 GM TP (22:05)
[2016-03-31] MEDS ORDERED: DULCOLAX10 MG PR (22:06)
[2016-03-31] MEDS ORDERED: FLEET ENEMA-AD118 ML PR (22:06)
[2016-03-31] MEDS ORDERED: OXAYDO5 MG PO (22:08)
[2016-03-31] MEDS ORDERED: MILK OF MAGN PO (22:08)
[2016-03-31] MEDS ORDERED: ARTHRITIS PAIN650 M5 PO (22:10)
[2016-03-31] MEDS ORDERED: TYLENOL ARTHRI650 MG PO (22:11)
[2016-04-01 01:02] LABS: ADD MIUA? NO; BILIRUBIN NEGATIVE; BLOOD NEGATIVE; COLOR YELLOW ((YELLOW)); GLUCOSE (STRIP) NEGATIVE; KETONES NEGATIVE; LEUKOCYTES NEGATIVE; NITRITE NEGATIVE; PROTEIN (STRIP) NEGATIVE; SPECIFIC GRAVITY 1.038 (1.000-1.030); UCUL ADDED? NO
[2016-04-01 04:00] VITALS: BP 101/65
[2016-04-01 08:12] VITALS: BP 100/70
[2016-04-01 15:21] VITALS: BP 100/69
[2016-04-01 20:11] VITALS: BP 107/68
[2016-04-02] VITALS (8 sets, daily range): BP systolic 86–150; BP diastolic 50–83
[2016-04-02 11:46] LABS: HEMATOCRIT 25.9 % (36.0-46.0); MCH 31.8 PG (29.0-34.0); MCHC 32.4 G/DL (30.0-36.0); MCV 98.1 FL (83-99); MEAN PLAT.VOLUME 11.8 uM^3 (9.5-12.4); PLATELET COUNT 221 K/uL (156-360); RBC DIS.WIDTH-CV 19.2 % (11.8-14.6); RBC DIS.WIDTH-SD 67.7 % (39-53); RED BLOOD COUNT 2.64 M/uL (3.80-5.20); WHITE BLOOD COUNT 10.9 K/uL (4.1-10.2)
[2016-04-02 12:40] LABS: ALKALINE PHOSPHATASE 158 IU/L (3-129); ANION GAP 8 MEQ/L (2-14); CHLORIDE 112 MEQ/L (99-109); GFR ESTIMATE (CALCULATED) > 59 mL/min/; GLUCOSE 89 mg/dL (70-99); POTASSIUM 3.3 MEQ/L (3.7-5.4); SAMPLE HEMOLYSIS CHECK 0; SAMPLE ICTERIC CHECK 0; SAMPLE LIPEMIA CHECK 0; SODIUM 143 MEQ/L (136-147); TOTAL BILIRUBIN 1.3 MG/DL (0.0-1.0); UREA NITROGEN (BUN) 9 mg/dL (9-23)
[2016-04-03 03:37] VITALS: BP 93/50
[2016-04-03 08:46] VITALS: BP 95/51
[2016-04-03 11:20] LABS: HEMATOCRIT 23.4 % (36.0-46.0); MCH 32.1 PG (29.0-34.0); MCHC 32.9 G/DL (30.0-36.0); MCV 97.5 FL (83-99); MEAN PLAT.VOLUME 11.1 uM^3 (9.5-12.4); PLATELET COUNT 277 K/uL (156-360); RBC DIS.WIDTH-CV 19.3 % (11.8-14.6); RBC DIS.WIDTH-SD 67.6 % (39-53); WHITE BLOOD COUNT 9.2 K/uL (4.1-10.2)
[2016-04-03 13:26] LABS: ALKALINE PHOSPHATASE 140 IU/L (3-129); ANION GAP 7 MEQ/L (2-14); CHLORIDE 110 MEQ/L (99-109); GFR ESTIMATE (CALCULATED) > 59 mL/min/; GLUCOSE 87 mg/dL (70-99); POTASSIUM 3.8 MEQ/L (3.7-5.4); SAMPLE HEMOLYSIS CHECK 1; SAMPLE ICTERIC CHECK 0; SAMPLE LIPEMIA CHECK 0; SODIUM 138 MEQ/L (136-147); TOTAL BILIRUBIN 1.4 MG/DL (0.0-1.0); UREA NITROGEN (BUN) 8 mg/dL (9-23)
[2016-04-03 15:30] VITALS: BP 108/67
[2016-04-03 23:29] VITALS: BP 104/69
[2016-04-04 07:15] VITALS: BP 98/74
[2016-04-04 09:17] LABS: HEMATOCRIT 24.9 % (36.0-46.0); MCH 32.2 PG (29.0-34.0); MCHC 33.3 G/DL (30.0-36.0); MCV 96.5 FL (83-99); MEAN PLAT.VOLUME 10.9 uM^3 (9.5-12.4); PLATELET COUNT 299 K/uL (156-360); RBC DIS.WIDTH-CV 18.9 % (11.8-14.6); RBC DIS.WIDTH-SD 65.7 % (39-53); RED BLOOD COUNT 2.58 M/uL (3.80-5.20); WHITE BLOOD COUNT 9.9 K/uL (4.1-10.2)
[2016-04-04 09:41] LABS: ALKALINE PHOSPHATASE 150 IU/L (3-129); ANION GAP 9 MEQ/L (2-14); CHLORIDE 109 MEQ/L (99-109); GFR ESTIMATE (CALCULATED) > 59 mL/min/; GLUCOSE 74 mg/dL (70-99); POTASSIUM 3.5 MEQ/L (3.7-5.4); SAMPLE HEMOLYSIS CHECK 0; SAMPLE ICTERIC CHECK 0; SAMPLE LIPEMIA CHECK 0; SODIUM 139 MEQ/L (136-147); TOTAL BILIRUBIN 1.4 MG/DL (0.0-1.0); UREA NITROGEN (BUN) 8 mg/dL (9-23)
[2016-04-04 16:14] VITALS: BP 97/56
[2016-04-04 16:37] LABS: HCV RNA (IU/mL) <15 IU/mL (<15); HCV RNA (LOG IU/mL) <1.18 (<1.18)
[2016-04-04 23:20] VITALS: BP 114/66; BP 122/59
[2016-04-05 08:44] LABS: HEMATOCRIT 23.4 % (36.0-46.0); MCH 31.8 PG (29.0-34.0); MCHC 32.9 G/DL (30.0-36.0); MCV 96.7 FL (83-99); MEAN PLAT.VOLUME 11.2 uM^3 (9.5-12.4); PLATELET COUNT 295 K/uL (156-360); RBC DIS.WIDTH-SD 62.9 % (39-53); RED BLOOD COUNT 2.42 M/uL (3.80-5.20); WHITE BLOOD COUNT 10.3 K/uL (4.1-10.2)
== END 2016-04-05 12:29 | DRG 391 ==
LOC: EME → EDBD 14:30 → EME 14:30 → EDOF 23:41 → 2EAST 23:41
PROVIDERS: Emergency Medicine; Internal Medicine; Obstetrics & Gynecology
DX: K22.2 Esophageal obstruction (principal); E43 Unspecified severe protein-calorie malnutrition; J90 Pleural effusion, not elsewhere classified; J98.11 Atelectasis; K91.2 Postsurgical malabsorption, not elsewhere classified; R11.12 Projectile vomiting; J44.9 Chronic obstructive pulmonary disease, unspecified; F31.9 Bipolar disorder, unspecified; K21.9 Gastro-esophageal reflux disease without esophagitis; K76.0 Fatty (change of) liver, not elsewhere classified; E86.0 Dehydration; R19.7 Diarrhea, unspecified; D25.2 Subserosal leiomyoma of uterus; G89.4 Chronic pain syndrome; D25.1 Intramural leiomyoma of uterus; E88.09 Other disorders of plasma-protein metabolism, not elsewhere classified; L30.9 Dermatitis, unspecified; L43.9 Lichen planus, unspecified; E87.6 Hypokalemia; D50.8 Other iron deficiency anemias; I89.0 Lymphedema, not elsewhere classified; E66.9 Obesity, unspecified; Z98.84 Bariatric surgery status; Z68.27 Body mass index [BMI] 27.0-27.9, adult; Z87.891 Personal history of nicotine dependence; Z83.3 Family history of diabetes mellitus; Z82.49 Family history of ischemic heart disease and other diseases of the circulatory system
CPT/HCPCS: 74177; 76856; 80053; 81003; 83605; 83690; 85027; 87040; 87522 90; 94640; 94640 76; 94760; 94799; 99281; 99285; J0692; J1650; J2270; J2405; J2543; J2765; J3370; J7030; J7050; S0028

== ENCOUNTER → 2016-03-31 | Outpatient (CLI) | payer OTHER ==
[~2016-03-31] MED LIST changes: +ARTHRITIS PAIN650 M5 PO; +CEFEPIME HCL1 GM IM; +CHOLESTYRAMINE P4 GM PO; +DULCOLAX10 MG PR; +FLEET ENEMA-AD118 ML PR; +FOLIC ACID1 MG PO; +IMODIUM A-D2 M2 PO; +KENALOG,ARISTOC15 G3 TP; +KLOR-CON M2020 MEQ PO; +KLOR-CON20 MEQ PO; +LOPERAMIDE2 MG PO; +MILK OF MAGN PO; +MINERIN CREME454 GM TP; +ONE DAILY TABL1 EAC1 PO; +PROBIOTIC1 EAC1 PO; +PROVENTIL,2.5 MG/3 M IH; +SALINE NASAL SP45 ML BOTH NARES; +SPIRIVA1 INHALATI IH; +TYLENOL ARTHRI650 MG PO; +VITAMIN D-3 401 EACH PO; +VITAMIN D400 UNIT PO
== END ==
LOC: RAD 09:00
DX: K22.2 Esophageal obstruction (principal); R10.13 Epigastric pain; R11.2 Nausea with vomiting, unspecified; R63.4 Abnormal weight loss; K21.9 Gastro-esophageal reflux disease without esophagitis; Z98.84 Bariatric surgery status
CPT/HCPCS: 74241

== ENCOUNTER 2016-04-07 17:10 | Emergency (ER) | payer OTHER ==
[~2016-04-07] VITALS: Ht 172.7 cm; Wt 87.0 kg
[~2016-04-07 17:10] MED LIST changes: +ARTHRITIS PAIN650 M5 PO; +CEFEPIME HCL1 GM IM; +DULCOLAX10 MG PR; +FLEET ENEMA-AD118 ML PR; +MILK OF MAGN PO; +MINERIN CREME454 GM TP; +ONE DAILY TABL1 EAC1 PO; +PROBIOTIC1 EAC1 PO; +PROVENTIL,2.5 MG/3 M IH; +SALINE NASAL SP45 ML BOTH NARES; +SPIRIVA1 INHALATI IH; +TYLENOL ARTHRI650 MG PO; +VITAMIN D400 UNIT PO
[2016-04-07 18:45] LABS: HEMATOCRIT 26.8 % (36.0-46.0); MCH 32.2 PG (29.0-34.0); MCHC 33.2 G/DL (30.0-36.0); MCV 97.1 FL (83-99); MEAN PLAT.VOLUME 10.6 uM^3 (9.5-12.4); PLATELET COUNT 280 K/uL (156-360); RBC DIS.WIDTH-CV 18.5 % (11.8-14.6); RBC DIS.WIDTH-SD 61.4 % (39-53); RED BLOOD COUNT 2.76 M/uL (3.80-5.20)
[2016-04-07 18:49] LABS: WHITE BLOOD COUNT 11.5 K/uL (4.1-10.2)
[2016-04-07 18:55] LABS: CHLORIDE 110 mEq/L (99-109); POTASSIUM 3.7 mEq/L (3.7-5.4); SODIUM 139 mEq/L (136-147)
[2016-04-07 18:58] LABS: GLUCOSE 85 mg/dL (70-99)
[2016-04-07 18:59] LABS: ANION GAP 12 MEQ/L (2-14)
[2016-04-07 19:00] LABS: TOTAL BILIRUBIN 1.2 mg/dL (0.0-1.0)
[2016-04-07 19:01] LABS: ALKALINE PHOSPHATASE 172 IU/L (3-129); GFR ESTIMATE (CALCULATED) > 59 mL/min/
[2016-04-07 19:02] LABS: UREA NITROGEN (BUN) 7 mg/dL (9-23)
[2016-04-07 19:05] LABS: LIPASE 5 U/L (1.0-51.0)
[2016-04-08 01:33] VITALS: BP 105/65
== END 2016-04-08 01:42 ==
LOC: EME → EDBD 17:10 → EME 04-08 01:42
DX: D64.9 Anemia, unspecified (principal); E86.0 Dehydration; G89.29 Other chronic pain; R10.9 Unspecified abdominal pain; Z79.891 Long term (current) use of opiate analgesic; Z87.891 Personal history of nicotine dependence; Z99.81 Dependence on supplemental oxygen
CPT/HCPCS: 80053; 81003; 83690; 85027; 86850; 86900; 86901; 99281; 99285; J7030

== ENCOUNTER 2016-04-16 12:48 | Inpatient (IN) | payer OTHER ==
[~2016-04-16] VITALS: Ht 170.2 cm; Wt 101.7 kg
[2016-04-16] VITALS (13 sets, daily range): BP systolic 92–141; BP diastolic 53–84
[2016-04-16 13:13] LABS: HEMATOCRIT 31.2 % (36.0-46.0); MCH 32.1 PG (29.0-34.0); MCHC 31.7 G/DL (30.0-36.0); MEAN PLAT.VOLUME 10.5 uM^3 (9.5-12.4); RBC DIS.WIDTH-CV 18.5 % (11.8-14.6); RBC DIS.WIDTH-SD 65.5 % (39-53); RED BLOOD COUNT 3.08 M/uL (3.80-5.20); WHITE BLOOD COUNT 12.4 K/uL (4.1-10.2)
[2016-04-16 13:23] LABS: NRBC (%) 0.6 /100 WBC (0-0)
[2016-04-16 13:26] LABS: CHLORIDE 117 mEq/L (99-109); POTASSIUM 5.9 mEq/L (3.7-5.4); SODIUM 148 mEq/L (136-147)
[2016-04-16 13:28] LABS: GLUCOSE 139 mg/dL (70-99)
[2016-04-16 13:29] LABS: ANION GAP 23 MEQ/L (2-14)
[2016-04-16 13:30] LABS: TOTAL BILIRUBIN 1.7 mg/dL (0.0-1.0)
[2016-04-16 13:31] LABS: ALKALINE PHOSPHATASE 196 IU/L (3-129)
[2016-04-16 13:32] LABS: GFR ESTIMATE (CALCULATED) 40 mL/min/
[2016-04-16 13:33] LABS: TROP-I INTERPRETATION NEGATIVE; TROPONIN-I 0.06 ng/mL (0.0-0.30); UREA NITROGEN (BUN) 13 mg/dL (9-23)
[2016-04-16 13:45] LABS: POINT-OF-CARE METER ID UU13113702
[2016-04-16 13:49] LABS: EOSINOPHIL (%) 0.1 % (0-5); HEMATOLOGY COMMENT 1 SMEAR COMPATIBLE; IMMATURE GRANULOCYTE (%) 0.6 % (0.0-0.7); IMMATURE GRANULOCYTE COUNT 0.7 K/uL; LYMPHOCYTE COUNT 2.4 K/uL (1.0-2.8); MONOCYTE (%) 3.1 % (3-12); MONOCYTE COUNT 0.4 K/uL (0-0.8); NEUTROPHIL (%) 77.1 % (45-76); NEUTROPHIL COUNT 9.6 K/uL (1.8-6.4); PLAT.SUFFICIENCY ADEQUATE
[2016-04-16 13:50] LABS: MCV 101.3 FL (83-99)
[2016-04-16 13:59] LABS: ADD MIUA? YES; BILIRUBIN NEGATIVE; BLOOD NEGATIVE; COLOR AMBER ((YELLOW)); GLUCOSE (STRIP) NEGATIVE; KETONES 5; LEUKOCYTES NEGATIVE; NITRITE NEGATIVE; PROTEIN (STRIP) 30; SPECIFIC GRAVITY 1.017 (1.000-1.030)
[2016-04-16 14:28] LABS: BACTERIA 1+ /HPF; CASTS PRESENT /LPF; EPITHELIAL CELLS RARE /HPF; MUCUS NONE SEEN /LPF; RED BLOOD CELLS NONE SEEN /HPF (0-5); UCUL ADDED? NO; WHITE BLOOD CELLS 0-5 /HPF (0-5)
[2016-04-16 17:35] LABS: CHLORIDE 121 mEq/L (99-109); POTASSIUM 4.9 mEq/L (3.7-5.4); SODIUM 150 mEq/L (136-147)
[2016-04-16 17:38] LABS: ANION GAP 21 MEQ/L (2-14)
[2016-04-16 17:41] LABS: GFR ESTIMATE (CALCULATED) 50 mL/min/
[2016-04-16 17:42] LABS: UREA NITROGEN (BUN) 12 mg/dL (9-23)
[2016-04-16 17:54] LABS: GLUCOSE 36 mg/dL (70-99)
[2016-04-16] MEDS ORDERED: BABY SHAMPOO TP (18:19)
[2016-04-16] MEDS ORDERED: VITAMIN D400 UNIT PO (18:20)
[2016-04-16] MEDS ORDERED: EFFEXOR XR75 MG PO (18:21)
[2016-04-16] MEDS ORDERED: SPIRIVA RESPIMAT4 GM IH (18:27)
[2016-04-16] MEDS ORDERED: SALINE SOLUTIO355 ML MC (18:31)
[2016-04-16] MEDS ORDERED: ARTIFICIAL TEAR15 M1 BOTH EYES (18:36)
[2016-04-16] MEDS ORDERED: FLEET ENEMA-AD118 ML PR (18:38)
[2016-04-16] MEDS ORDERED: TYLENOL REGULA325 MG PO (18:42)
[2016-04-16 20:40] LABS: POINT-OF-CARE METER ID UU13113803
[2016-04-16 21:08] LABS: HEMATOCRIT 29.2 % (36.0-46.0); MCH 31.1 PG (29.0-34.0); MCHC 30.1 G/DL (30.0-36.0); MCV 103.2 FL (83-99); NRBC (%) 0.8 /100 WBC (0-0); RBC DIS.WIDTH-CV 18.3 % (11.8-14.6); RBC DIS.WIDTH-SD 69.5 % (39-53); RED BLOOD COUNT 2.83 M/uL (3.80-5.20); WHITE BLOOD COUNT 10.5 K/uL (4.1-10.2)
[2016-04-16 21:26] LABS: PROTHROMBIN TIME 100.6 (9.2-11.2); PTT 136.1 (25-32)
[2016-04-16 21:28] LABS: ALKALINE PHOSPHATASE 137 IU/L (3-129); ANION GAP 22 MEQ/L (2-14); CHLORIDE 119 MEQ/L (99-109); GFR ESTIMATE (CALCULATED) 46 mL/min/; INTER. NORMALIZED RATIO 9.2; MAGNESIUM 1.9 mg/dl (1.3-2.7); POTASSIUM 4.6 MEQ/L (3.7-5.4); SAMPLE HEMOLYSIS CHECK 0; SAMPLE ICTERIC CHECK 0; SAMPLE LIPEMIA CHECK 0; SODIUM 149 MEQ/L (136-147); TOTAL BILIRUBIN 1.9 MG/DL (0.0-1.0); UREA NITROGEN (BUN) 14 mg/dL (9-23)
[2016-04-16 21:31] LABS: EOSINOPHIL (%) 0 % (0-5); HEMATOLOGY COMMENT 1 SMEAR COMPATIBLE; IMMATURE GRANULOCYTE (%) 0.8 % (0.0-0.7); IMMATURE GRANULOCYTE COUNT 0.1 K/uL; LYMPHOCYTE COUNT 2.6 K/uL (1.0-2.8); MEAN PLAT.VOLUME 10.6 uM^3 (9.5-12.4); MONOCYTE (%) 1.7 % (3-12); MONOCYTE COUNT 0.2 K/uL (0-0.8); NEUTROPHIL COUNT 7.6 K/uL (1.8-6.4); PLAT.SUFFICIENCY ADEQUATE; PLATELET COUNT UNABLE TO REPORT K/uL (156-360); USER ID NJV
[2016-04-16 21:34] LABS: GLUCOSE 96 mg/dL (70-99)
[2016-04-16 21:57] LABS: METH RESISTANT S AUREUS PCR POSITIVE (NEGATIVE)
[2016-04-16 21:59] LABS: POINT-OF-CARE METER ID UU13113803
[2016-04-16 22:01] LABS: PROBE CHECK PASS
[2016-04-17] VITALS (26 sets, daily range): BP systolic 61–105; BP diastolic 41–71
[2016-04-17 01:58] LABS: POINT-OF-CARE METER ID UU13113803
[2016-04-17 02:44] LABS: POINT-OF-CARE METER ID UU14174217
[2016-04-17 04:07] LABS: POINT-OF-CARE METER ID UU14174217
[2016-04-17 04:35] LABS: POINT-OF-CARE METER ID UU14174217
[2016-04-17 06:02] LABS: POINT-OF-CARE METER ID UU13113803
[2016-04-17 06:08] LABS: INTER. NORMALIZED RATIO 1.9; PROTHROMBIN TIME 19.6 (9.2-11.2); PTT 51.3 (25-32)
[2016-04-17 06:20] LABS: EOSINOPHIL (%) 0 % (0-5); HEMATOCRIT 23.1 % (36.0-46.0); HEMATOLOGY COMMENT 1 REV; IMMATURE GRANULOCYTE COUNT 0.1 K/uL; LYMPHOCYTE COUNT 3.2 K/uL (1.0-2.8); MCH 32.3 PG (29.0-34.0); MCHC 30.3 G/DL (30.0-36.0); MCV 106.5 FL (83-99); MONOCYTE (%) 0.3 % (3-12); NEUTROPHIL COUNT 5.3 K/uL (1.8-6.4); NRBC (%) 1.1 /100 WBC (0-0); PLAT.SUFFICIENCY ADEQUATE; RBC DIS.WIDTH-CV 18.6 % (11.8-14.6); RBC DIS.WIDTH-SD 71.9 % (39-53); WHITE BLOOD COUNT 8.6 K/uL (4.1-10.2)
[2016-04-17 06:21] LABS: PLATELET COUNT ND K/uL (156-360); RED BLOOD COUNT 2.17 M/uL (3.80-5.20)
[2016-04-17 06:46] LABS: ALKALINE PHOSPHATASE 108 IU/L (3-129); ANION GAP 24 MEQ/L (2-14); CHLORIDE 118 MEQ/L (99-109); GFR ESTIMATE (CALCULATED) 43 mL/min/; GLUCOSE 105 mg/dL (70-99); MAGNESIUM 1.8 mg/dl (1.3-2.7); SAMPLE HEMOLYSIS CHECK 0; SAMPLE ICTERIC CHECK 0; SAMPLE LIPEMIA CHECK 0; SODIUM 150 MEQ/L (136-147); UREA NITROGEN (BUN) 14 mg/dL (9-23)
[2016-04-17 06:48] LABS: TOTAL BILIRUBIN 2.4 MG/DL (0.0-1.0)
[2016-04-17 06:56] LABS: POINT-OF-CARE METER ID UU13113803
[2016-04-17 07:57] LABS: GFR ESTIMATE (CALCULATED) 40 mL/min/; GLUCOSE 113 mg/dL (70-99); UREA NITROGEN (BUN) 14 mg/dL (9-23)
[2016-04-17 08:03] LABS: ANION GAP 24 MEQ/L (2-14)
[2016-04-17 08:04] LABS: CHLORIDE 119 MEQ/L (99-109); POTASSIUM 4.1 MEQ/L (3.7-5.4); SODIUM 151 MEQ/L (136-147)
[2016-04-17 08:05] LABS: POINT-OF-CARE METER ID UU13113803
[2016-04-17 10:15] LABS: BASE EXCESS -18.7 mEq/L (-3 to +3); CARBOXY HGB 1.6 % (0-5); METHEMOGLOBIN 1.5 % (0-1.5); PO2 168 mm Hg (80-100)
[2016-04-17 10:16] LABS: PCO2 51 mm Hg (35-45); pH 6.98 (7.35-7.45)
[2016-04-17 10:17] LABS: COMMENTS - BLOOD GASES C+ANA; DEVICE 840 PB; FI02 70 %; MECHANICAL RATE 25 resp/min; MODE AC; PEEP 20 CM/H20; SITE ALINE; TIDAL VOLUME 350 ML; TOTAL RESP RATE 25 resp/min
[2016-04-17 10:39] LABS: POINT-OF-CARE METER ID UU13113803
[2016-04-17 11:31] LABS: BICARBONATE 12.7 mEq/L (22-26); CARBOXY HGB 1.4 % (0-5); METHEMOGLOBIN 1.3 % (0-1.5); PCO2 42 mm Hg (35-45); PO2 171 mm Hg (80-100); SITE ALINE
[2016-04-17 11:32] LABS: COMMENTS - BLOOD GASES NA C+; DEVICE VENT; FI02 60 %; MECHANICAL RATE 30 resp/min; MODE AC; TIDAL VOLUME 350 ML; TOTAL RESP RATE 30 resp/min; pH 7.09 (7.35-7.45)
[2016-04-17 11:48] LABS: POINT-OF-CARE METER ID UU13113803
[2016-04-17 12:40] LABS: POINT-OF-CARE METER ID UU13113803
[2016-04-17 13:54] LABS: POINT-OF-CARE METER ID UU13113803
[2016-04-17 13:55] LABS: EOSINOPHIL (%) 0.2 % (0-5); IMMATURE GRANULOCYTE (%) 0.9 % (0.0-0.7); IMMATURE GRANULOCYTE COUNT 0.1 K/uL; LYMPHOCYTE COUNT 5.3 K/uL (1.0-2.8); MCH 31.3 PG (29.0-34.0); MONOCYTE (%) 0.4 % (3-12); NEUTROPHIL (%) 51.5 % (45-76); NEUTROPHIL COUNT 5.9 K/uL (1.8-6.4); RBC DIS.WIDTH-SD 75.7 % (39-53)
[2016-04-17 14:03] LABS: BASE EXCESS -13.7 mEq/L (-3 to +3); BICARBONATE 13.9 mEq/L (22-26); CARBOXY HGB 1.8 % (0-5); METHEMOGLOBIN 1.4 % (0-1.5); PCO2 38 mm Hg (35-45)
[2016-04-17 14:06] LABS: COMMENTS - BLOOD GASES C+ANA; DEVICE 840 PB; FI02 40 %; MECHANICAL RATE 30 resp/min; MODE AC; PEEP 16 CM/H20; PO2 63 mm Hg (80-100); SITE ALINE; TIDAL VOLUME 400 ML; TOTAL RESP RATE 30 resp/min; pH 7.17 (7.35-7.45)
[2016-04-17 14:12] LABS: INTER. NORMALIZED RATIO 1.8; PROTHROMBIN TIME 18.2 (9.2-11.2); PTT 52.2 (25-32)
[2016-04-17 14:27] LABS: ALKALINE PHOSPHATASE 134 IU/L (3-129); ANION GAP 18 MEQ/L (2-14); CHLORIDE 120 MEQ/L (99-109); GFR ESTIMATE (CALCULATED) 40 mL/min/; GLUCOSE 132 mg/dL (70-99); POTASSIUM 3.8 MEQ/L (3.7-5.4); SAMPLE HEMOLYSIS CHECK 0; SAMPLE ICTERIC CHECK 0; SAMPLE LIPEMIA CHECK 0; SODIUM 151 MEQ/L (136-147); TOTAL BILIRUBIN 2.7 MG/DL (0.0-1.0); UREA NITROGEN (BUN) 14 mg/dL (9-23)
[2016-04-17 14:37] LABS: HBSG INDEX 0.17; HPCA INDEX 0.79
[2016-04-17 14:37] LABS: RED BLOOD COUNT 3.07 M/uL (3.80-5.20); WHITE BLOOD COUNT 11.4 K/uL (4.1-10.2)
[2016-04-17 14:38] LABS: ANTI-HEPATITIS A VIRUS (IGM) Nonreactive; HAV INDEX 0.13
[2016-04-17 14:39] LABS: ANTI-HEPATITIS B CORE (IGM) Nonreactive; HBC IgM INDEX 0.06
[2016-04-17 16:12] LABS: HEMATOLOGY COMMENT 1 SMEAR COMPATIBLE; PLAT.SUFFICIENCY ADEQUATE; USER ID SS
[2016-04-17 16:14] LABS: PLATELET COUNT ND K/uL (156-360)
[2016-04-17 16:14] LABS: POINT-OF-CARE METER ID UU13113803
[2016-04-17 17:48] LABS: BASE EXCESS -11.5 mEq/L (-3 to +3); BICARBONATE 13.9 mEq/L (22-26); CARBOXY HGB 1.6 % (0-5); DEVICE VENT; FI02 40 %; MECHANICAL RATE 30 resp/min; METHEMOGLOBIN 1.5 % (0-1.5); MODE AC; PCO2 29 mm Hg (35-45); PEEP 14 CM/H20; PO2 94 mm Hg (80-100); SITE ALINE; TIDAL VOLUME 450 ML; TOTAL RESP RATE 30 resp/min; pH 7.29 (7.35-7.45)
[2016-04-17 18:35] LABS: POINT-OF-CARE METER ID UU13113803
[2016-04-17 20:20] LABS: POINT-OF-CARE METER ID UU13113803
[2016-04-17 22:09] LABS: BASE EXCESS -8.1 mEq/L (-3 to +3); BICARBONATE 16.7 mEq/L (22-26); CARBOXY HGB 1.9 % (0-5); COMMENTS - BLOOD GASES C+; DEVICE VENT; FI02 40 %; MECHANICAL RATE 30 resp/min; METHEMOGLOBIN 1.5 % (0-1.5); MODE AC; PCO2 31 mm Hg (35-45); PEEP 14 CM/H20; PO2 100 mm Hg (80-100); SITE RR; TIDAL VOLUME 450 ML; TOTAL RESP RATE 30 resp/min; pH 7.34 (7.35-7.45)
[2016-04-17 22:38] LABS: POINT-OF-CARE METER ID UU14174217
[2016-04-17 23:18] LABS: CHLORIDE 117 mEq/L (99-109); POTASSIUM 4.2 mEq/L (3.7-5.4); SODIUM 150 mEq/L (136-147)
[2016-04-17 23:19] LABS: MAGNESIUM 1.3 mg/dL (1.3-2.7)
[2016-04-17 23:22] LABS: ANION GAP 18 MEQ/L (2-14); EOSINOPHIL (%) 0.5 % (0-5); EOSINOPHIL COUNT 0.1 K/uL (0-0.3); HEMATOCRIT 31.3 % (36.0-46.0); HEMATOLOGY COMMENT 1 REV; IMMATURE GRANULOCYTE (%) 0.8 % (0.0-0.7); IMMATURE GRANULOCYTE COUNT 0.1 K/uL; LYMPHOCYTE COUNT 5.2 K/uL (1.0-2.8); MCH 30.1 PG (29.0-34.0); MCV 97.2 FL (83-99); MONOCYTE COUNT 0.1 K/uL (0-0.8); NEUTROPHIL (%) 62.1 % (45-76); NEUTROPHIL COUNT 9.1 K/uL (1.8-6.4); NRBC (%) 2.8 /100 WBC (0-0); PLATELET COUNT UNABLE TO REPORT K/uL (156-360); RBC DIS.WIDTH-CV 21.3 % (11.8-14.6); RBC DIS.WIDTH-SD 74.7 % (39-53); RED BLOOD COUNT 3.22 M/uL (3.80-5.20); USER ID SLU; WHITE BLOOD COUNT 14.7 K/uL (4.1-10.2)
[2016-04-17 23:23] LABS: INTER. NORMALIZED RATIO 2.1; MEAN PLAT.VOLUME ND uM^3 (9.5-12.4); PROTHROMBIN TIME 22.1 (9.2-11.2); PTT 58.1 (25-32)
[2016-04-17 23:24] LABS: ALKALINE PHOSPHATASE 172 IU/L (3-129)
[2016-04-17 23:25] LABS: GFR ESTIMATE (CALCULATED) 37 mL/min/
[2016-04-17 23:26] LABS: UREA NITROGEN (BUN) 14 mg/dL (9-23)
[2016-04-17 23:36] LABS: GLUCOSE 81 mg/dL (70-99)
[2016-04-18 02:41] LABS: HEMATOCRIT 26.6 % (36.0-46.0); MCH 31.2 PG (29.0-34.0); MCHC 32.3 G/DL (30.0-36.0); MCV 96.4 FL (83-99); RBC DIS.WIDTH-CV 21.3 % (11.8-14.6); RBC DIS.WIDTH-SD 71.4 % (39-53); RED BLOOD COUNT 2.76 M/uL (3.80-5.20); WHITE BLOOD COUNT 14.9 K/uL (4.1-10.2)
[2016-04-18 02:49] LABS: CHLORIDE 118 mEq/L (99-109); POTASSIUM 3.8 mEq/L (3.7-5.4); SODIUM 153 mEq/L (136-147)
[2016-04-18 02:50] LABS: MAGNESIUM 1.1 mg/dL (1.3-2.7)
[2016-04-18 02:52] LABS: GLUCOSE 101 mg/dL (70-99)
[2016-04-18 02:53] LABS: ANION GAP 17 MEQ/L (2-14)
[2016-04-18 02:54] LABS: TOTAL BILIRUBIN 2.8 mg/dL (0.0-1.0)
[2016-04-18 02:55] LABS: ALKALINE PHOSPHATASE 142 IU/L (3-129)
[2016-04-18 02:56] LABS: GFR ESTIMATE (CALCULATED) 37 mL/min/
[2016-04-18 02:57] LABS: UREA NITROGEN (BUN) 14 mg/dL (9-23)
[2016-04-18 03:15] LABS: POINT-OF-CARE METER ID UU13113803
[2016-04-18 03:40] LABS: HEMATOLOGY COMMENT 1 REV; PLAT.SUFFICIENCY DECREASED; POLYCHROMASIA 1+; TARGET CELLS 1+; USER ID SLU
[2016-04-18 03:41] LABS: EOSINOPHIL (%) 0.3 % (0-5); EOSINOPHIL COUNT 0.1 K/uL (0-0.3); IMMATURE GRANULOCYTE (%) 1.1 % (0.0-0.7); IMMATURE GRANULOCYTE COUNT 0.2 K/uL; LYMPHOCYTE COUNT 4.3 K/uL (1.0-2.8); MEAN PLAT.VOLUME 11.1 uM^3 (9.5-12.4); MONOCYTE (%) 0.8 % (3-12); MONOCYTE COUNT 0.1 K/uL (0-0.8); NEUTROPHIL (%) 68.6 % (45-76); NRBC (%) 2.5 /100 WBC (0-0); PLATELET COUNT 65 K/uL (156-360)
[2016-04-18 06:12] LABS: POINT-OF-CARE METER ID UU13113803
[2016-04-18 07:23] LABS: POINT-OF-CARE METER ID UU13113803
[2016-04-18 07:28] LABS: HEMATOCRIT 27.4 % (36.0-46.0); MCH 30.9 PG (29.0-34.0); MCHC 32.5 G/DL (30.0-36.0); MCV 95.1 FL (83-99); NRBC (%) 1.7 /100 WBC (0-0); RBC DIS.WIDTH-SD 72.4 % (39-53); RED BLOOD COUNT 2.88 M/uL (3.80-5.20); WHITE BLOOD COUNT 15.9 K/uL (4.1-10.2)
[2016-04-18 07:42] LABS: POINT-OF-CARE METER ID UU13113803
[2016-04-18 07:46] LABS: EOSINOPHIL (%) 0.3 % (0-5); IMMATURE GRANULOCYTE (%) 0.6 % (0.0-0.7); IMMATURE GRANULOCYTE COUNT 0.1 K/uL; LYMPHOCYTE COUNT 3.2 K/uL (1.0-2.8); MONOCYTE (%) 0.7 % (3-12); MONOCYTE COUNT 0.1 K/uL (0-0.8); NEUTROPHIL COUNT 12.4 K/uL (1.8-6.4)
[2016-04-18 07:52] LABS: ALKALINE PHOSPHATASE 122 IU/L (3-129); ANION GAP 18 MEQ/L (2-14); CHLORIDE 114 MEQ/L (99-109); GFR ESTIMATE (CALCULATED) 37 mL/min/; GLUCOSE 98 mg/dL (70-99); MAGNESIUM 1.8 mg/dl (1.3-2.7); POTASSIUM 3.7 MEQ/L (3.7-5.4); SAMPLE HEMOLYSIS CHECK 0; SAMPLE ICTERIC CHECK 1; SAMPLE LIPEMIA CHECK 0; SODIUM 151 MEQ/L (136-147); TOTAL BILIRUBIN 3.2 MG/DL (0.0-1.0); UREA NITROGEN (BUN) 15 mg/dL (9-23)
[2016-04-18 08:00] VITALS: BP 97/73
[2016-04-18 08:06] LABS: POINT-OF-CARE METER ID UU13113803
[2016-04-18 08:37] LABS: POINT-OF-CARE METER ID UU13113803
[2016-04-18 08:47] LABS: HEMATOLOGY COMMENT 1 SMEAR COMPATIBLE; MEAN PLAT.VOLUME 10.1 uM^3 (9.5-12.4); PLAT.SUFFICIENCY DECREASED; PLATELET COUNT 52 K/uL (156-360); USER ID TLW
[2016-04-18 10:00] VITALS: BP 97/73
[2016-04-18 10:47] LABS: POINT-OF-CARE METER ID UU13113803
[2016-04-18 12:00] VITALS: BP 97/73
[2016-04-18 12:07] LABS: BASE EXCESS -7.6 mEq/L (-3 to +3); BICARBONATE 16.8 mEq/L (22-26); CARBOXY HGB 1.8 % (0-5); METHEMOGLOBIN 1.4 % (0-1.5); PCO2 29 mm Hg (35-45); pH 7.37 (7.35-7.45)
[2016-04-18 12:09] LABS: PO2 53 mm Hg (80-100)
[2016-04-18 12:10] LABS: DEVICE VENT; FI02 40 %; MECHANICAL RATE 24 resp/min; MODE AC; PEEP 12 CM/H20; SITE ALINE; TIDAL VOLUME 450 ML; TOTAL RESP RATE 30 resp/min
[2016-04-18 12:54] LABS: C3 COMPLEMENT 29 MG/DL (58-170); C4 COMPLEMENT 13 MG/DL (10-40)
[2016-04-18 12:58] LABS: CK-MB 10.5 ng/mL (0.0-4.9); TROP-I INTERPRETATION NEGATIVE
[2016-04-18 13:02] LABS: CREATINE KINASE 155 IU/L (1-294); TOTAL CK 155 IU/L (1-294)
[2016-04-18 14:12] LABS: VANCOMYCIN, TROUGH 20.4 MCG/ML (10-20)
[2016-04-18 14:57] LABS: POINT-OF-CARE METER ID UU13113803
[2016-04-18 15:02] LABS: POINT-OF-CARE METER ID UU13113803
[2016-04-18 18:21] LABS: POINT-OF-CARE METER ID UU13113803
[2016-04-18 19:48] LABS: ANION GAP 23 MEQ/L (2-14); CHLORIDE 108 MEQ/L (99-109); CREATINE KINASE 143 IU/L (1-294); GFR ESTIMATE (CALCULATED) 40 mL/min/; GLUCOSE 113 mg/dL (70-99); POTASSIUM 3.3 MEQ/L (3.7-5.4); SAMPLE HEMOLYSIS CHECK 0; SAMPLE ICTERIC CHECK 0; SAMPLE LIPEMIA CHECK 0; SODIUM 149 MEQ/L (136-147); TOTAL CK 143 IU/L (1-294); UREA NITROGEN (BUN) 14 mg/dL (9-23)
[2016-04-18 19:50] LABS: TROP-I INTERPRETATION NEGATIVE
[2016-04-18 20:16] LABS: CK-MB 8.8 ng/mL (0.0-4.9)
[2016-04-18 20:37] LABS: POINT-OF-CARE USER ID ENVSME70
[2016-04-18 22:08] LABS: POINT-OF-CARE METER ID UU13113803; POINT-OF-CARE USER ID LABHNS84
[2016-04-18 23:18] LABS: POINT-OF-CARE METER ID UU13113803; POINT-OF-CARE USER ID LABHNS84
[2016-04-19] VITALS (8 sets, daily range): BP systolic 97–108; BP diastolic 62–79
[2016-04-19 00:07] LABS: POINT-OF-CARE METER ID UU13113803; POINT-OF-CARE USER ID LABHNS84
[2016-04-19 00:26] LABS: CREATINE KINASE 176 IU/L (1-294); TOTAL CK 176 IU/L (1-294)
[2016-04-19 00:32] LABS: CK-MB 7.8 ng/mL (0.0-4.9); TROP-I INTERPRETATION NEGATIVE; TROPONIN-I 0.07 ng/mL (0.0-0.30)
[2016-04-19 01:02] LABS: BASE EXCESS -12.2 mEq/L (-3 to +3); BICARBONATE 15.2 mEq/L (22-26); PCO2 39 mm Hg (35-45); PO2 51 mm Hg (80-100); SITE ALINE
[2016-04-19 01:03] LABS: DEVICE VENT; FI02 50 %; MECHANICAL RATE 20 resp/min; MODE AC; PEEP 12 CM/H20; TIDAL VOLUME 450 ML; TOTAL RESP RATE 28 resp/min
[2016-04-19 02:11] LABS: POINT-OF-CARE METER ID UU14162636; POINT-OF-CARE USER ID LABHNS84
[2016-04-19 03:21] LABS: POINT-OF-CARE METER ID UU14162636; POINT-OF-CARE USER ID LABHNS84
[2016-04-19 04:10] LABS: POINT-OF-CARE METER ID UU14162636; POINT-OF-CARE USER ID ENVSME70
[2016-04-19 05:29] LABS: POINT-OF-CARE METER ID UU14162636; POINT-OF-CARE USER ID LABHNS84
[2016-04-19 06:20] LABS: TROP-I INTERPRETATION NEGATIVE; TROPONIN-I 0.08 ng/mL (0.0-0.30)
[2016-04-19 06:41] LABS: CK-MB 9.9 ng/mL (0.0-4.9)
[2016-04-19 06:57] LABS: ALKALINE PHOSPHATASE 98 IU/L (3-129); ANION GAP 25 MEQ/L (2-14); CHLORIDE 104 MEQ/L (99-109); CREATINE KINASE 156 IU/L (1-294); DIRECT BILIRUBIN 2.2 mg/dL (0.0-0.3); GFR ESTIMATE (CALCULATED) 35 mL/min/; GLUCOSE 119 mg/dL (70-99); MAGNESIUM 1.9 mg/dl (1.3-2.7); POTASSIUM 3.1 MEQ/L (3.7-5.4); SAMPLE HEMOLYSIS CHECK 0; SAMPLE ICTERIC CHECK 0; SAMPLE LIPEMIA CHECK 0; SODIUM 150 MEQ/L (136-147); TOTAL BILIRUBIN 2.7 MG/DL (0.0-1.0); TOTAL CK 156 IU/L (1-294); UREA NITROGEN (BUN) 15 mg/dL (9-23)
[2016-04-19 07:05] LABS: HEMATOCRIT 21.3 % (36.0-46.0); MCH 30.7 PG (29.0-34.0); MCHC 31.5 G/DL (30.0-36.0); MCV 98.2 FL (83-99); NRBC (%) 1.5 /100 WBC (0-0); RBC DIS.WIDTH-CV 21.5 % (11.8-14.6); RBC DIS.WIDTH-SD 76.5 % (39-53); WHITE BLOOD COUNT 17.4 K/uL (4.1-10.2)
[2016-04-19 07:09] LABS: RED BLOOD COUNT 2.18 M/uL (3.80-5.20)
[2016-04-19 07:59] LABS: ANISOCYTOSIS 2+; MACROCYTES 2+; MEAN PLAT.VOLUME 11.6 uM^3 (9.5-12.4); PLAT.SUFFICIENCY DECREASED; POLYCHROMASIA OCC; SMUDGE CELLS 0; USER ID STC
[2016-04-19 08:00] LABS: PLATELET COUNT 25 K/uL (156-360)
[2016-04-19 08:02] LABS: POINT-OF-CARE METER ID UU13113803
[2016-04-19 08:02] LABS: DELETE MACHINE DIFF? YES
[2016-04-19 08:02] LABS: POINT-OF-CARE METER ID UU13113803; POINT-OF-CARE USER ID LABHNS84
[2016-04-19 08:05] LABS: BASE EXCESS -3.8 mEq/L (-3 to +3); BICARBONATE 21.5 mEq/L (22-26); CARBOXY HGB 2.3 % (0-5); DEVICE 840; FI02 60 %; MECHANICAL RATE 20 resp/min; METHEMOGLOBIN 1.2 % (0-1.5); MODE AC; PCO2 39 mm Hg (35-45); PO2 72 mm Hg (80-100); SITE ALINE; TOTAL RESP RATE 22 resp/min; pH 7.35 (7.35-7.45)
[2016-04-19 08:06] LABS: PEEP 12 CM/H20; TIDAL VOLUME 450 ML
[2016-04-19 09:01] LABS: POINT-OF-CARE METER ID UU13113748
[2016-04-19 10:46] LABS: POINT-OF-CARE METER ID UU13113748
[2016-04-19 10:46] LABS: POINT-OF-CARE METER ID UU13113748
[2016-04-19 11:02] LABS: UR CREATININE CONCENTRATION 85.7 MG/DL
[2016-04-19 11:19] LABS: BASE EXCESS -7.6 mEq/L (-3 to +3); BICARBONATE 20.2 mEq/L (22-26); CARBOXY HGB 1.7 % (0-5); DEVICE 840; FI02 60 %; METHEMOGLOBIN 1.9 % (0-1.5); PCO2 53 mm Hg (35-45); PO2 42 mm Hg (80-100); SITE ALINE; pH 7.19 (7.35-7.45)
[2016-04-19 11:20] LABS: MECHANICAL RATE 20 resp/min; MODE AC; PEEP 12 CM/H20; TIDAL VOLUME 450 ML; TOTAL RESP RATE 24 resp/min
[2016-04-19 11:20] LABS: POINT-OF-CARE METER ID UU13113748
[2016-04-19 12:07] LABS: POINT-OF-CARE METER ID UU13113748
[2016-04-19 13:24] LABS: BASE EXCESS -6.3 mEq/L (-3 to +3); BICARBONATE 19.7 mEq/L (22-26); CARBOXY HGB 1.1 % (0-5); DEVICE 840; FI02 100 %; METHEMOGLOBIN 1.5 % (0-1.5); PCO2 40 mm Hg (35-45); PO2 176 mm Hg (80-100); SITE ALINE
[2016-04-19 13:25] LABS: INSPIRATION TIME 0.7 seconds; MECHANICAL RATE 26 resp/min; MODE AC VC+; PEEP 18 CM/H20; TIDAL VOLUME 450 ML; TOTAL RESP RATE 28 resp/min
[2016-04-19 14:29] LABS: POINT-OF-CARE METER ID UU13113748
[2016-04-19 15:32] LABS: MCH 30.8 PG (29.0-34.0); MCHC 32.4 G/DL (30.0-36.0); MCV 95.1 FL (83-99); MEAN PLAT.VOLUME 12.7 uM^3 (9.5-12.4); RBC DIS.WIDTH-CV 18.9 % (11.8-14.6); RBC DIS.WIDTH-SD 65.1 % (39-53); WHITE BLOOD COUNT 17.6 K/uL (4.1-10.2)
[2016-04-19 15:33] LABS: PLATELET COUNT 17 K/uL (156-360); RED BLOOD COUNT 3.05 M/uL (3.80-5.20)
[2016-04-19 16:24] LABS: POINT-OF-CARE METER ID UU13113748
[2016-04-19 17:32] LABS: POINT-OF-CARE METER ID UU13113748
[2016-04-19 18:20] LABS: POINT-OF-CARE METER ID UU13113748
[2016-04-19 19:26] LABS: POINT-OF-CARE METER ID UU13113748
[2016-04-19 19:45] LABS: ANION GAP 23 MEQ/L (2-14); CHLORIDE 101 MEQ/L (99-109); DIRECT BILIRUBIN 3.5 mg/dL (0.0-0.3); POTASSIUM 3.1 MEQ/L (3.7-5.4); SAMPLE HEMOLYSIS CHECK 0; SAMPLE ICTERIC CHECK 1; SAMPLE LIPEMIA CHECK 0; SODIUM 148 MEQ/L (136-147)
[2016-04-19 19:52] LABS: ALKALINE PHOSPHATASE 105 IU/L (3-129); GFR ESTIMATE (CALCULATED) 35 mL/min/; GLUCOSE 145 mg/dL (70-99); TOTAL BILIRUBIN 4.5 MG/DL (0.0-1.0); UREA NITROGEN (BUN) 14 mg/dL (9-23)
[2016-04-19 20:28] LABS: POINT-OF-CARE METER ID UU13113748
[2016-04-19 23:26] LABS: POINT-OF-CARE METER ID UU13113748
[2016-04-19 23:38] LABS: HEMATOCRIT 24.8 % (36.0-46.0); MCH 30.8 PG (29.0-34.0); MCHC 32.7 G/DL (30.0-36.0); MCV 94.3 FL (83-99); RBC DIS.WIDTH-CV 18.8 % (11.8-14.6); RBC DIS.WIDTH-SD 60.9 % (39-53); RED BLOOD COUNT 2.63 M/uL (3.80-5.20); WHITE BLOOD COUNT 15.6 K/uL (4.1-10.2)
[2016-04-19 23:48] LABS: POTASSIUM 3.4 mEq/L (3.7-5.4); SODIUM 145 mEq/L (136-147)
[2016-04-19 23:50] LABS: GLUCOSE 186 mg/dL (70-99)
[2016-04-19 23:51] LABS: PLATELET COUNT 10 K/uL (156-360)
[2016-04-19 23:52] LABS: ANION GAP 23 MEQ/L (2-14)
[2016-04-19 23:54] LABS: ALKALINE PHOSPHATASE 119 IU/L (3-129); GFR ESTIMATE (CALCULATED) 33 mL/min/
[2016-04-19 23:55] LABS: UREA NITROGEN (BUN) 14 mg/dL (9-23)
[2016-04-20] VITALS (30 sets, daily range): BP systolic 91–125; BP diastolic 59–89
[2016-04-20 00:01] LABS: INTER. NORMALIZED RATIO 2.2; PROTHROMBIN TIME 23.4 (9.2-11.2)
[2016-04-20 00:11] LABS: PTT 111.6 (25-32)
[2016-04-20 00:12] LABS: CHLORIDE 101 mEq/L (99-109); MAGNESIUM 1.9 mg/dL (1.3-2.7); TOTAL BILIRUBIN 4.6 mg/dL (0.0-1.0)
[2016-04-20 00:44] LABS: DELETE MACHINE DIFF? YES
[2016-04-20 01:00] LABS: ABS NEUTROPHIL COUNT 10.31; BURR CELLS 1+; OVALOCYTES RARE; PLAT.SUFFICIENCY DECREASED; POLYCHROMASIA 1+; SCHISTOCYTES 1+
[2016-04-20 01:04] LABS: FIBRINOGEN 119 MG/DL (160-450)
[2016-04-20 05:53] LABS: NRBC (%) 1.1 /100 WBC (0-0)
[2016-04-20 06:17] LABS: POINT-OF-CARE METER ID UU13113803
[2016-04-20 06:51] LABS: ANION GAP 24 MEQ/L (2-14); CHLORIDE 98 MEQ/L (99-109); GFR ESTIMATE (CALCULATED) 33 mL/min/; POTASSIUM 3.3 MEQ/L (3.7-5.4); SAMPLE HEMOLYSIS CHECK 0; SAMPLE ICTERIC CHECK 1; SAMPLE LIPEMIA CHECK 0; SODIUM 145 MEQ/L (136-147); UREA NITROGEN (BUN) 15 mg/dL (9-23)
[2016-04-20 07:03] LABS: HEMATOCRIT 25.3 % (36.0-46.0); MCH 30.8 PG (29.0-34.0); MCHC 33.2 G/DL (30.0-36.0); MCV 92.7 FL (83-99); RBC DIS.WIDTH-CV 18.8 % (11.8-14.6); RBC DIS.WIDTH-SD 62.7 % (39-53); RED BLOOD COUNT 2.73 M/uL (3.80-5.20); WHITE BLOOD COUNT 15.6 K/uL (4.1-10.2)
[2016-04-20 07:34] LABS: GLUCOSE 95 mg/dL (70-99)
[2016-04-20 08:23] LABS: BASE EXCESS -1.7 mEq/L (-3 to +3); BICARBONATE 22.9 mEq/L (22-26); CARBOXY HGB 1.5 % (0-5); PCO2 37 mm Hg (35-45)
[2016-04-20 08:24] LABS: DEVICE 840; FI02 50 %; MODE AC/VC+; PO2 133 mm Hg (80-100); SITE ALINE
[2016-04-20 08:25] LABS: MECHANICAL RATE 26 resp/min; PEEP 18 CM/H20; TIDAL VOLUME 450 ML; TOTAL RESP RATE 31 resp/min
[2016-04-20 08:34] LABS: ANISOCYTOSIS 1+; MACROCYTES 1+; PLAT.SUFFICIENCY DECREASED; PLATELET COUNT 8 K/uL (156-360); SPHEROCYTES OCC
[2016-04-20 08:37] LABS: DELETE MACHINE DIFF? YES
[2016-04-20 11:04] LABS: POINT-OF-CARE METER ID UU13113748
[2016-04-20 11:04] LABS: POINT-OF-CARE METER ID UU13113748
[2016-04-20 17:45] LABS: PCO2 27 mm Hg (35-45); PO2 59 mm Hg (80-100); pH 7.41 (7.35-7.45)
[2016-04-20 17:46] LABS: BICARBONATE 17.1 mEq/L (22-26); DEVICE 840; FI02 40 %; INSPIRATION TIME 0.7 seconds; MECHANICAL RATE 26 resp/min; MODE AC VC+; PEEP 16 CM/H20; SITE ALINE; TIDAL VOLUME 450 ML; TOTAL RESP RATE 39 resp/min
[2016-04-20 18:21] LABS: INTER. NORMALIZED RATIO 1.5; PROTHROMBIN TIME 15.2 (9.2-11.2)
[2016-04-20 18:25] LABS: PTT 57.9 (25-32)
[2016-04-20 18:27] LABS: ALKALINE PHOSPHATASE 100 IU/L (3-129); ANION GAP 32 MEQ/L (2-14); CHLORIDE 96 MEQ/L (99-109); CREATINE KINASE 98 IU/L (1-294); GFR ESTIMATE (CALCULATED) 31 mL/min/; MAGNESIUM 1.9 mg/dl (1.3-2.7); POTASSIUM 3.4 MEQ/L (3.7-5.4); SAMPLE HEMOLYSIS CHECK 0; SAMPLE ICTERIC CHECK 1; SAMPLE LIPEMIA CHECK 0; SODIUM 145 MEQ/L (136-147); TOTAL BILIRUBIN 4.1 MG/DL (0.0-1.0); TOTAL CK 98 IU/L (1-294); UREA NITROGEN (BUN) 15 mg/dL (9-23)
[2016-04-20 18:28] LABS: GLUCOSE 226 mg/dL (70-99)
[2016-04-20 18:31] LABS: TROP-I INTERPRETATION NEGATIVE; TROPONIN-I 0.07 ng/mL (0.0-0.30)
[2016-04-20 18:45] LABS: CK-MB 5.6 ng/mL (0.0-4.9)
[2016-04-20 18:47] LABS: ABS NEUTROPHIL COUNT 7.01; ANISOCYTOSIS 1+; HEMATOCRIT 17.9 % (36.0-46.0); MCH 31.8 PG (29.0-34.0); MCHC 34.1 G/DL (30.0-36.0); MCV 93.7 FL (83-99); NRBC (%) 1.7 /100 WBC (0-0); PLAT.SUFFICIENCY DECREASED; RBC DIS.WIDTH-CV 18.6 % (11.8-14.6); RBC DIS.WIDTH-SD 62.4 % (39-53); RED BLOOD COUNT 1.92 M/uL (3.80-5.20); USER ID VLB; WHITE BLOOD COUNT 9.9 K/uL (4.1-10.2)
[2016-04-20 18:48] LABS: DELETE MACHINE DIFF? YES; PLATELET COUNT 27 K/uL (156-360)
[2016-04-20 19:10] LABS: POINT-OF-CARE USER ID LABHNS84
[2016-04-20 20:39] LABS: POINT-OF-CARE USER ID LABHNS84
[2016-04-20 22:33] LABS: POINT-OF-CARE USER ID LABHNS84
[2016-04-20 23:30] LABS: POINT-OF-CARE USER ID LABHNS84
[2016-04-21] VITALS (13 sets, daily range): BP systolic 81–120; BP diastolic 61–84
[2016-04-21 02:33] LABS: HEMATOCRIT 27.1 % (36.0-46.0); MCH 31.1 PG (29.0-34.0); MCHC 33.6 G/DL (30.0-36.0); MCV 92.5 FL (83-99); RBC DIS.WIDTH-CV 16.9 % (11.8-14.6); RBC DIS.WIDTH-SD 54.5 % (39-53); WHITE BLOOD COUNT 8.9 K/uL (4.1-10.2)
[2016-04-21 02:34] LABS: RED BLOOD COUNT 2.93 M/uL (3.80-5.20)
[2016-04-21 02:39] LABS: INTER. NORMALIZED RATIO 1.5; PROTHROMBIN TIME 15.9 (9.2-11.2); PTT 60.8 (25-32)
[2016-04-21 02:44] LABS: CHLORIDE 100 mEq/L (99-109); POTASSIUM 3.4 mEq/L (3.7-5.4); SODIUM 139 mEq/L (136-147)
[2016-04-21 02:46] LABS: TOTAL BILIRUBIN 4.7 mg/dL (0.0-1.0)
[2016-04-21 02:46] LABS: GLUCOSE 290 mg/dL (70-99)
[2016-04-21 02:47] LABS: ANION GAP 27 MEQ/L (2-14)
[2016-04-21 02:48] LABS: TOTAL BILIRUBIN 4.7 mg/dL (0.0-1.0)
[2016-04-21 02:50] LABS: ALKALINE PHOSPHATASE 126 IU/L (3-129)
[2016-04-21 02:51] LABS: UREA NITROGEN (BUN) 10 mg/dL (9-23)
[2016-04-21 02:54] LABS: TROP-I INTERPRETATION NEGATIVE; TROPONIN-I 0.06 ng/mL (0.0-0.30)
[2016-04-21 02:57] LABS: GFR ESTIMATE (CALCULATED) 46 mL/min/
[2016-04-21 03:09] LABS: ALKALINE PHOSPHATASE 129 IU/L (3-129)
[2016-04-21 03:11] LABS: DIRECT BILIRUBIN 3.5 mg/dL (0.0-0.3)
[2016-04-21 03:12] LABS: ANISOCYTOSIS 1+; CREATINE KINASE 162 IU/L (1-294); MICROCYTOSIS OCC; PLAT.SUFFICIENCY DECREASED; POLYCHROMASIA OCC; TARGET CELLS RARE; TOTAL CK 162 IU/L (1-294); USER ID SLU
[2016-04-21 03:14] LABS: ABS NEUTROPHIL COUNT 5.93; EOSINOPHIL (%) 0.1 % (0-5); IMMATURE GRANULOCYTE (%) 1.1 % (0.0-0.7); LYMPHOCYTE COUNT 2.4 K/uL (1.0-2.8); MEAN PLAT.VOLUME 10.7 uM^3 (9.5-12.4); MONOCYTE (%) 0.2 % (3-12); NEUTROPHIL (%) 71.1 % (45-76); NEUTROPHIL COUNT 6.3 K/uL (1.8-6.4); PLATELET COUNT 17 K/uL (156-360)
[2016-04-21 03:18] LABS: CK-MB 5.8 ng/mL (0.0-4.9)
[2016-04-21 03:29] LABS: MAGNESIUM 1.9 mg/dL (1.3-2.7)
[2016-04-21 04:29] LABS: POINT-OF-CARE METER ID UU13113748; POINT-OF-CARE USER ID LABHNS84
[2016-04-21 05:47] LABS: POINT-OF-CARE METER ID UU13113803
[2016-04-21 05:51] LABS: HEMATOCRIT 27.8 % (36.0-46.0); MCH 30.8 PG (29.0-34.0); MCHC 33.1 G/DL (30.0-36.0); NRBC (%) 1.9 /100 WBC (0-0); RBC DIS.WIDTH-CV 17.5 % (11.8-14.6); RBC DIS.WIDTH-SD 58.7 % (39-53); RED BLOOD COUNT 2.99 M/uL (3.80-5.20); WHITE BLOOD COUNT 8.8 K/uL (4.1-10.2)
[2016-04-21 06:15] LABS: INTERNAL CONTROL VALID? YES
[2016-04-21 06:21] LABS: TROP-I INTERPRETATION NEGATIVE; TROPONIN-I 0.06 ng/mL (0.0-0.30)
[2016-04-21 06:24] LABS: FIBRINOGEN 202 MG/DL (160-450)
[2016-04-21 06:53] LABS: C DIFF TOXIN NEGATIVE (NEGATIVE)
[2016-04-21 06:54] LABS: PROBE CHECK PASS; SPECIMEN PROCESSING CONTROL PASS
[2016-04-21 06:54] LABS: DELETE MACHINE DIFF? YES
[2016-04-21 07:12] LABS: ANION GAP 29 MEQ/L (2-14); CHLORIDE 98 MEQ/L (99-109); GFR ESTIMATE (CALCULATED) > 59 mL/min/; GLUCOSE 177 mg/dL (70-99); POTASSIUM 3.3 MEQ/L (3.7-5.4); SAMPLE HEMOLYSIS CHECK 0; SAMPLE ICTERIC CHECK 1; SAMPLE LIPEMIA CHECK 0; SODIUM 138 MEQ/L (136-147); UREA NITROGEN (BUN) 9 mg/dL (9-23)
[2016-04-21 07:28] LABS: CK-MB 6.5 ng/mL (0.0-4.9)
[2016-04-21 07:47] LABS: POINT-OF-CARE METER ID UU13113803
[2016-04-21 08:02] LABS: CREATINE KINASE 136 IU/L (1-294); TOTAL CK 136 IU/L (1-294)
[2016-04-21 08:33] LABS: CARBOXY HGB 1.4 % (0-5); METHEMOGLOBIN 1.2 % (0-1.5); PCO2 27 mm Hg (35-45)
[2016-04-21 08:33] LABS: ABS NEUTROPHIL COUNT 4.59; ANISOCYTOSIS 1+; MACROCYTES 1+; MEAN PLAT.VOLUME 10.8 uM^3 (9.5-12.4); PLAT.SUFFICIENCY DECREASED; PLATELET COUNT 12 K/uL (156-360); USER ID NJR
[2016-04-21 08:35] LABS: BICARBONATE 10.6 mEq/L (22-26); DEVICE VENT; FI02 50 %; MODE SPONT; PEEP 16 CM/H20; PO2 100 mm Hg (80-100); PRES. SUPPORT 10 CM/H2O; SITE A-LINE; TOTAL RESP RATE 24 resp/min
[2016-04-21 08:53] LABS: POINT-OF-CARE METER ID UU13113803
[2016-04-21 09:29] LABS: POINT-OF-CARE METER ID UU13113748; POINT-OF-CARE USER ID 609231305
[2016-04-21 09:29] LABS: POINT-OF-CARE USER ID LABHNS84
[2016-04-21 09:37] LABS: POINT-OF-CARE METER ID UU13113803
[2016-04-21 09:37] LABS: POINT-OF-CARE METER ID UU13113803
[2016-04-21 09:53] LABS: POINT-OF-CARE METER ID UU13113803
[2016-04-21 10:53] LABS: POINT-OF-CARE METER ID UU13113803
[2016-04-21 12:06] LABS: POINT-OF-CARE METER ID UU13113803
[2016-04-21 12:09] LABS: BASE EXCESS -15.2 mEq/L (-3 to +3); BICARBONATE 11.1 mEq/L (22-26); CARBOXY HGB 1.5 % (0-5); COMMENTS - BLOOD GASES C+; DEVICE VENT; FI02 50 %; INSPIRATION TIME 0.9 seconds; MECHANICAL RATE 28 resp/min; METHEMOGLOBIN 1.2 % (0-1.5); MODE AC PC; PCO2 27 mm Hg (35-45); PEEP 16 CM/H20; PO2 64 mm Hg (80-100); PRESSURE CONTROL VENTILATION 31 CM H20; SITE ALINE; TOTAL RESP RATE 33 resp/min; pH 7.22 (7.35-7.45)
[2016-04-21 12:48] LABS: POINT-OF-CARE METER ID UU13113803
[2016-04-21 13:04] LABS: TROP-I INTERPRETATION NEGATIVE
[2016-04-21 13:15] LABS: ANION GAP 27 MEQ/L (2-14); CHLORIDE 100 MEQ/L (99-109); CREATINE KINASE 206 IU/L (1-294); GFR ESTIMATE (CALCULATED) > 59 mL/min/; GLUCOSE 229 mg/dL (70-99); POTASSIUM 3.5 MEQ/L (3.7-5.4); SAMPLE HEMOLYSIS CHECK 0; SAMPLE ICTERIC CHECK 1; SAMPLE LIPEMIA CHECK 0; SODIUM 139 MEQ/L (136-147); TOTAL CK 206 IU/L (1-294); UREA NITROGEN (BUN) 6 mg/dL (9-23)
[2016-04-21 16:58] LABS: POINT-OF-CARE METER ID UU13113803
[2016-04-21 18:06] LABS: POINT-OF-CARE METER ID UU13113803
[2016-04-21 18:22] LABS: EOSINOPHIL (%) 0.2 % (0-5); HEMATOCRIT 30.8 % (36.0-46.0); HEMATOLOGY COMMENT 1 SMEAR COMPATIBLE; IMMATURE GRANULOCYTE (%) 1.8 % (0.0-0.7); IMMATURE GRANULOCYTE COUNT 0.1 K/uL; LYMPHOCYTE COUNT 2.6 K/uL (1.0-2.8); MCH 30.6 PG (29.0-34.0); MCHC 32.1 G/DL (30.0-36.0); MCV 95.1 FL (83-99); MEAN PLAT.VOLUME 10.6 uM^3 (9.5-12.4); MONOCYTE (%) 19.2 % (3-12); MONOCYTE COUNT 1.1 K/uL (0-0.8); NEUTROPHIL (%) 33.6 % (45-76); NEUTROPHIL COUNT 1.9 K/uL (1.8-6.4); PLAT.SUFFICIENCY DECREASED; PLATELET COUNT 29 K/uL (156-360); RBC DIS.WIDTH-CV 17.3 % (11.8-14.6); RBC DIS.WIDTH-SD 58.8 % (39-53); RED BLOOD COUNT 3.24 M/uL (3.80-5.20); USER ID NJV; WHITE BLOOD COUNT 5.7 K/uL (4.1-10.2)
[2016-04-21 19:36] LABS: ANION GAP 34 MEQ/L (2-14); CHLORIDE 104 MEQ/L (99-109); GFR ESTIMATE (CALCULATED) > 59 mL/min/; GLUCOSE 95 mg/dL (70-99); MAGNESIUM 2.3 mg/dl (1.3-2.7); POTASSIUM 4.6 MEQ/L (3.7-5.4); SAMPLE HEMOLYSIS CHECK 0; SAMPLE ICTERIC CHECK 1; SAMPLE LIPEMIA CHECK 0; SODIUM 142 MEQ/L (136-147); UREA NITROGEN (BUN) 6 mg/dL (9-23)
[2016-04-21 21:28] LABS: POINT-OF-CARE METER ID UU14162636; POINT-OF-CARE USER ID LABHNS84
[2016-04-21 22:08] LABS: POINT-OF-CARE METER ID UU14162636; POINT-OF-CARE USER ID LABHNS84
[2016-04-23 23:01] LABS: Neutrophil Cytoplasmic Aby Negative (Negative)
[2016-04-24 12:36] LABS: POINT-OF-CARE METER ID UU13113803
[2016-04-24 12:56] LABS: POINT-OF-CARE METER ID UU13113803; POINT-OF-CARE USER ID LABHNS84
[2016-04-24 12:56] LABS: POINT-OF-CARE METER ID UU14162636; POINT-OF-CARE USER ID LABHNS84
== END 2016-04-22 03:48 | DRG 853 ==
LOC: EME 12:48 → EDOF 16:48 → 4WEST 16:48
PROVIDERS: Emergency Medicine; Internal Medicine Critical Care Medicine; Internal Medicine Nephrology; Obstetrics & Gynecology
PROC: 05HC33Z Insertion of Infusion Device into Left Basilic Vein, Percutaneous Approach (ICD-10-PCS; 2016-04-16)
PROC: 02HV33Z Insertion of Infusion Device into Superior Vena Cava, Percutaneous Approach (ICD-10-PCS; 2016-04-16)
PROC: 06HN33Z Insertion of Infusion Device into Left Femoral Vein, Percutaneous Approach (ICD-10-PCS; 2016-04-16)
PROC: 0BH17EZ Insertion of Endotracheal Airway into Trachea, Via Natural or Artificial Opening (ICD-10-PCS; principal; 2016-04-17)
PROC: 5A1955Z Respiratory Ventilation, Greater than 96 Consecutive Hours (ICD-10-PCS; principal; 2016-04-17)
PROC: 03H Upper Arteries, Insertion (ICD-10-PCS; principal; 2016-04-17)
PROC: 05HM3DZ Insertion of Intraluminal Device into Right Internal Jugular Vein, Percutaneous Approach (ICD-10-PCS; 2016-04-20)
DX: A41.02 Sepsis due to Methicillin resistant Staphylococcus aureus (principal); R65.21 Severe sepsis with septic shock; N17.0 Acute kidney failure with tubular necrosis; J96.21 Acute and chronic respiratory failure with hypoxia; D65 Disseminated intravascular coagulation [defibrination syndrome]; J15.3 Pneumonia due to streptococcus, group B; J15.212 Pneumonia due to Methicillin resistant Staphylococcus aureus; K72.00 Acute and subacute hepatic failure without coma; E87.2 Acidosis; D58.9 Hereditary hemolytic anemia, unspecified; F33.9 Major depressive disorder, recurrent, unspecified; Z66 Do not resuscitate; E11.649 Type 2 diabetes mellitus with hypoglycemia without coma; I10 Essential (primary) hypertension; B18.2 Chronic viral hepatitis C; A40.1 Sepsis due to streptococcus, group B; J44.9 Chronic obstructive pulmonary disease, unspecified; E78.5 Hyperlipidemia, unspecified; J45.50 Severe persistent asthma, uncomplicated; G89.29 Other chronic pain; L43.9 Lichen planus, unspecified; E83.42 Hypomagnesemia; E87.6 Hypokalemia; E87.5 Hyperkalemia; B37.2 Candidiasis of skin and nail; Z99.81 Dependence on supplemental oxygen; Z98.84 Bariatric surgery status; Z96.612 Presence of left artificial shoulder joint; Z96.611 Presence of right artificial shoulder joint; Z87.891 Personal history of nicotine dependence; Z82.49 Family history of ischemic heart disease and other diseases of the circulatory system; Z83.3 Family history of diabetes mellitus
CPT/HCPCS: 36600; 70450; 71010; 71250; 74176; 80048; 80048 91; 80053; 80069; 80074; 80076; 80178; 80202; 81003; 82140; 82272; 82550; 82550 91; 82553; 82570; 82803; 82948; 83605; 83735; 84100; 84156; 84300; 84484; 84999; 85025; 85025 91; 85027; 85384; 85610; 85730; 86021 90; 86038; 86160; 86162 90; 86430; 86850; 86900; 86901; 86920; 86965; 87040; 87070; 87077; 87147; 87177; 87186; 87205; 87493; 87641; 87801; 93005; 94002; 94003; 94640; 94640 76; 94799; 99202; 99281; 99285; C1751; C1788; J0610; J0692; J0696; J1630; J1644; J1720; J1940; J2020; J2060; J2185; J2250; J2704; J3010; J3370; J3430; J3475; J3480; J7030; J7042; J7050; J7070; J7120; P9012; P9016; P9017; P9035; P9045; P9047; S0028; S0030